=== PATIENT | female | born 1940 | race Caucasian/White ===

== ENCOUNTER 2016-06-13 05:55 | Inpatient (IN) ==
--- NOTE | 2016-06-12 16:55 | Anesthesia Evaluation PreOp ---
Date of Encounter: 06/13/16 Time of Encounter: 16:52 - Past History Planned Operation: Bilateral Total Knee Arthroplasty Cardiac History: Hyperlipidemia Pulmonary History: Denies Any Significant HX PRIMARY TEACHING ASSISTANT History: Denies Any Significant HX Other Medical History: Thyroid, Other (depression) Anesthesia History: No Prior Anesthetic Complications, Past Anesthesia Alcohol Use: occasionally Drug use: none Medications and Allergies Ondansetron ODT [Zofran ODT] 4 mg SL Q6HR #10 tab.evaristo 04/28/16 [Rx] Aspirin Enteric Coated [Aspirin EC] 325 mg PO DAILY #21 tablet.dr 06/12/16 [Rx] Enoxaparin [Lovenox] 30 mg SQ Q12HR #20 syr 06/12/16 [Rx] OxyCODONE Immed Rel [Roxicodone 5 MG] 5 - 10 mg PO Q6HR PRN #40 tablet 06/12/16 [Rx] Allergies No Known Allergies Allergy (Verified 04/28/16 15:24) - Meds/Allergy Pre-op Review Medications Reviewed: Yes Allergies Reviewed: Yes Beta Blockers on Current Med List: No Anesthesia Results - Labs Laboratory Tests 05/30/16 05/30/16 05/30/16 14:45 14:45 14:45 WBC 9.9 Hgb 11.2 L Hct 34.1 L Plt Count 345 PT 11.9 INR 1.1 APTT 29.3 Sodium 137 Potassium 4.3 BUN 15 Creatinine 0.84 - Imaging EKG: report reviewed (04/28/2016 SR with SA, NSST abnormality) Additional studies: 06/04/2010 Stress CONCLUSIONS: ==> No chest pain. ==> Adequate exercise stress test based on maximum HR achieved. ==> Negative ECG for ischemia. ==> The exercise ECG was negative for ischemia. ==> The patient demonstrated fatique during the exam. ==> The patient experienced shortness of breath, fatigue during the exam. ==> The patient's exercise tolerance was average with 5.30 mins ==> The left ventricle does not appear dilated ==> Segmental ventricular function reveals no wall motion abnormalities ==> The gated ejection fraction was calculated at 51% ==> The nuclear exam reveals no evidence of stress-induced ischemia. ==> The nuclear exam reveals evidence of mild anterior fixed decreased uptake suggestive of breast attenuation artifact.. ==> Clinical correlation suggested., Anesthesia Exam O2 Sat Height 1.63 m Height 1.63 m Weight 63.503 kg Weight 63.503 kg O2 Sat by Pulse Oximetry 94 Vital Signs Temp Pulse Resp BP Pulse Ox 97.8 F 71 18 158/74 94 L 06/13/16 06:14 06/13/16 06:14 06/13/16 06:14 06/13/16 06:14 06/13/16 06:14 Height: 5'4'' Weight: 140 lbs NPO (# of Hours): 8 Pain Scale: 3 (left knee) Pain Scale Used: Numeric (1 - 10) - HEENT Pupil (Motor): EOMI Mallampati: II Teeth: Normal Oral Opening: Greater than 3 - PRIMARY TEACHING ASSISTANT LOC: Oriented PRIMARY TEACHING ASSISTANT Motor: Normal RUE, Normal RLE, Normal LLE, Normal Face, Deficit LUE PRIMARY TEACHING ASSISTANT Sensory: Normal: RUE, LUE, RLE, LLE, Face - Cardiac Rhythm: Regular Murmur: None - Pulmonary Breath Sounds: bilateral Clear Respiratory Effort: Symmetrical Anesthesia Assess/Plan ASA Score: 2 Modified Leelee Scale for Level of Consciousness: Cooperative, oriented, and tranquil Anesthetic Plan: General, Regional Monitoring Plan: Standard Monitors Recovery Plan: PACU
--- NOTE | 2016-06-12 20:37 | Discharge Summary ---
<Lisa Moreno - Last Filed: 06/12/16 20:46> Date of Encounter: 06/12/16 - Discharge Diagnosis (1) Arthritis of knee Priority: Primary Status: Acute (2) Status post bilateral knee replacements Priority: Primary Status: Acute (3) Thyroid disease Priority: Secondary Status: Chronic - Discharge Medications Home Medications: Aspirin Enteric Coated [Aspirin EC] 325 mg PO DAILY #21 tablet. 06/12/16 [Rx] Enoxaparin [Lovenox] 30 mg SQ Q12HR #20 syr 06/12/16 [Rx] OxyCODONE Immed Rel [Roxicodone 5 MG] 5 - 10 mg PO Q6HR PRN #40 tablet 06/12/16 [Rx] Acetaminophen [Tylenol Arthritis] 650 mg PO Q8H PRN 06/13/16 [History] Aspirin 81 mg PO DAILY 06/13/16 [History] Biotin 5 mg PO DAILY 06/13/16 [History] Budesonide [Rhinocort Allergy] 1 spr NS DAILY 06/13/16 [History] Cetirizine HCl [Zyrtec] 10 mg PO HS 06/13/16 [History] Citalopram [CeleXA] 20 mg PO DAILY 06/13/16 [History] Ibuprofen [Motrin] 200 mg PO Q4HR PRN 06/13/16 [History] Levothyroxine [Synthroid] 75 mcg PO 0630 06/13/16 [History] Multivits,Ca,Min/Iron/FA/Lycop [Centrum Men's Tablet] 1 each PO DAILY 06/13/16 [ History] Simvastatin [Zocor] 20 mg PO HS 06/13/16 [History] Allergies/Adverse Reactions: Allergies No Known Allergies Allergy (Verified 06/13/16 07:18) Primary care physician: Jon Collier CNP - Patient Status Disposition: Transfer Inpatient Rehab Fac Condition: Good - Discharge Instructions Follow Up With: Rufus Díaz MD [Partnered Physician] - 07/12/16 10:05 am Lisa Moreno PAC [Physician Gallery Director] - 06/24/16 9:45 am Jon Collier CNP [Primary Care Provider] - 06/17/16 10:00 am - Hospital Course Hospital course: Ms. Whitaker is a 75 year old female - Time Spent with Patient Total time spent providing and/or coordinating discharge services: <ArjunRufus - Last Filed: 06/16/16 08:13> Date of Encounter: 06/16/16 Time of Encounter: 08:12 - Discharge Diagnosis (1) Degenerative arthritis of knee, bilateral Priority: Primary (Hyponatremia) Status: Acute Qualifiers: Qualified Code(s): M17.0 - Bilateral primary osteoarthritis of knee (2) Thyroid disease Priority: Secondary Status: Chronic (3) Acute blood loss anemia Status: Acute (4) Hypotension Status: Acute Qualifiers: Qualified Code(s): I95.89 - Other hypotension (5) Hypothyroidism Status: Acute Qualifiers: Qualified Code(s): E03.9 - Hypothyroidism, unspecified Primary care physician: Jon Collier CNP - Patient Status Functional capacity at discharge: uses cane/walker Overall status at discharge: patient is progressing back to baseline - Hospital Course Hospital course: Ms. Whitaker is a 75 year old female Patient's postoperative course has been complicated by acute blood loss anemia with a concern for stroke. Workup was negative for stroke with a negative CAT scan. Patient has developed hyponatremia patient received packed red Blood cells to bring her hemoglobin back to 9.5. She received antibiotics and physical therapy discharge stable condition - Time Spent with Patient Total time spent providing and/or coordinating discharge services:
[2016-06-13] MEDS ORDERED: Lidocaine 1% 20 ML MDV ID ONE (06:34)
[2016-06-13] MEDS ORDERED: CeFAZolin Pre 2,000 MG/100 ML 2,000 MG/100 ML BAG IVPB ONE (06:34)
--- NOTE | 2016-06-13 06:36 | History & Physical Report ---
Date of Encounter: 06/13/16 Time of Encounter: 06:35 24 Hour HP Update - Instructions Instructions: If the History and Physical is less than 30 days old and was completed prior to A.M. admission and or procedure and has NOT been updated on calendar day of procedure please complete this update prior to performing procedure. - Update Patient reports changes in Medical Condition: No Changes in assessment/condition: No Changes in Medication: No Preop tests/diagnostics Reviewed: Yes Surgery Remains Indicated: Yes Consent for Planned Operative Procedure(s) Verified: Yes - Pre-Operative Checklist Preoperative Checklist Indicated: No Prophylactic Antibiotic Ordered: Yes Is VTE Prophylaxis Indicated?: Yes
[2016-06-13] MEDS ORDERED: Ringers Solution, Lactated 1,000 ML IVC SCH (06:45)
[2016-06-13] MEDS ORDERED: Lidocaine -MPF 4% 5 ML AMPUL ONE (07:15)
[2016-06-13] MEDS ORDERED: Lidocaine -MPF 2% 2 ML VIAL ONE (07:15)
[2016-06-13] MEDS ORDERED: *HR* Succinylcholine 200 MG/10 ML VIAL IVP ONE (07:15)
[2016-06-13] MEDS ORDERED: Ondansetron 4 MG/2 ML VIAL ONE (07:15)
[2016-06-13] MEDS ORDERED: Dexamethasone 4 MG/ML VIAL ONE (07:15)
[2016-06-13] MEDS ORDERED: *HR* Phenylephrine 10 MG/ML VIAL ONE (07:15)
[2016-06-13] MEDS ORDERED: *HR* Midazolam HCl 2 MG/2 ML VIAL ONE (07:16)
[2016-06-13] MEDS ORDERED: *HR* Propofol 200 MG/20 ML VIAL IVP ONE (07:16)
[2016-06-13] MEDS ORDERED: *HR* FentaNYL (PF) 100 MCG/2 ML VIAL ONE ×2 (07:16→07:21)
[2016-06-13] MEDS ORDERED: Vancomycin 1,000 MG VIAL ONE (07:23)
[2016-06-13] MEDS ORDERED: *HR* Morphine Sulfate/PF 10 MG/10 ML AMPUL ONE (07:24)
[2016-06-13] MEDS ORDERED: EPHEDrine 50 MG/ML VIAL ONE (08:08)
--- NOTE | 2016-06-13 08:33 | Anesthesia Procedures ---
Date of Encounter: 06/13/16 Time of Encounter: 07:45 Procedures: Anesthesia - Epidural/Spinal Patient ID/Chart reviewed: Yes Patient examined: Yes Consent Obtained: Yes (SPINAL DONE ) Supplemental Oxygen: Nasal Cannula Supplemental Oxygen Rate (L/min): 2 Sedation: Versed (mg): 1 Sedation: Fentanyl (mcg): 50 Site Prep: Aseptic Technique, Sterile prep and drape, Povidone-Iodine 1% Patient position: upright (SITTING) Local Anesthetic: Lidocaine 1% Amount of Local Anesthetic used: 1.6 (BUPIVICAINE 0.75%) Catheter Secured in Place: Other (STERILE 4x4 PLACED OVER SITE ) Interspace Used: L3-L4 Blood: No CSF: Yes Paresthesia: No Spinal Needle Gauge: Other (20 G PENCAN -SPINAL PROCEDURE) Procedure: SEE NOTE ON ANESTHESIA RECORD Vitals + FHT's: SEE VITALS ON ANESTHESIA RECORD PATIENT STABLE THROUGHOUT PROCEDURE
[2016-06-13] MEDS ORDERED: *HR* Promethazine 25 MG/ML VIAL IVP PRN (08:36)
--- NOTE | 2016-06-13 09:09 | Orthopedic Operative Note ---
Date of procedure: 06/13/16 Pre-op diagnosis: Bilateral knee arthritis Post-op diagnosis: same Procedure: Procedure: Bilateral Total knee replacement Estimated blood loss: 500 cc Hardware: Arthrex Femur: Bilateral 3 Tibia: Bilateral 3 PS insert: 14 left 12 right Patella: 34 bilateral Exam Under anesthesia: Full motion and no instability Procedural Notes: Bilateral grade 4 arthritic changes medial compartment grade 3 arthritic changes patellofemoral joints Operative procedure: The patient was brought to the operating room and placed on the operating room table. After general anesthesia was administered the operative knees were examined. Findings were noted in the exam under anesthesia. Both operative extremity was prepped and draped in sterile surgical fashion. The patient received IV antibiotics prior to skin incision. Surgery began with the left knee followed by the right knee. The following is the dictation for both knees. Any variation for either knee will be called out at the appropriate step. A standard midline incision was made centered over the patella. The incision was made through the skin and subcutaneous tissue. A medial parapatellar tendon approach was performed. Care was taken to preserve tissue along the medial aspect of the patella. And to protect the patella tendon. The deep MCL was released off the medial tibia. The infra patella fat pad was excised. Knee was brought into flexion. Patient noted to have grade 4 arthritic changes in both knees of the medial compartments and grade 3 arthritic changes of the patellofemoral joints both knees. The entry hole was made for the intramedullary femoral guide. The guide was seated in 6 degrees of valgus. Anterior cut was made followed by the distal cut. The ACL the PCL the medial and the lateral menisci were excised. The tibia was subluxed forward. The entry hole was made for the intramedullary tibial guide. Guide was seated to resect 2 mm off the more abnormal side. The knee was brought into flexion the distal femur was sized to a 3. The femoral guide was seated, the anterior cut was made followed by the posterior condylar cut, followed by the chamfer cuts. The finishing guide was seated the box cut was made and the lug holes were drilled. The tibia was sized to a 3, the tibial tray was seated and prepared with the large drill followed by the fin cutter. Trial reduction revealed full extension no varus valgus instability with the appropriate 12 in the right knee 14 in the left knee PS Odalis. The patella was everted and cut was made at the level of the insertion of the quadriceps and patella tendon. The patella was sized to 34's bilaterally the guide was seated and the lug holes are drilled. Trial reduction revealed excellent patella tracking. All trial components were removed all bony surfaces were irrigated. The tibia was cemented first followed by the femur. The 14 in the left knee and the 12 in the right knee PS Odalis was seated and the knee was brought into full extension. The patella was cemented and held in place with the patellar holding clamp. After the cement had hardened, the knee sat for 2 minutes with a Betadine saline solution. The knee was then irrigated out with 2 L of pulse irrigation. The extensor mechanism was closed with #2 FiberWire suture and #2 PDS suture. The subcutaneous tissue was then irrigated and closed deep with #1 PDS suture superficially with 0 PDS suture and skin was closed with skin olive. The patient was then placed in a sterile dressing and a postoperative brace extubated and transferred to recovery room in stable condition. Anesthesia: MICHAEL Surgeon: Rufus Díaz Deputy Editor In Chief: Lisa Moreno Condition: stable Disposition: PACU
[2016-06-13 10:00] LABS: Hemoglobin 9.8 g/dL (11.5-15.4)
--- NOTE | 2016-06-13 10:25 | Anesthesia Evaluation Post Op ---
Date of Encounter: 06/13/16 Time of Encounter: 10:23 - Vital Signs Vital Signs: Vital Signs/O2 Sat, Most Current Temp Pulse Resp BP Pulse Ox 97.3 F L 101 16 118/82 98 06/13/16 10:09 06/13/16 10:09 06/13/16 10:09 06/13/16 10:06/13/16 10:09 - Lungs Lungs: Clear Ascult./Percussion - Airway Airway: Non-obstructed - Cardiovascular Regular Rate - Mental Status Mental Status: Alert & Oriented, Answers Appropriately - Pain Pain Scale: 0 Pain Scale used: Numeric (1 - 10) - Nausea Vomiting Nausea Vomiting: Not Present - Hydration Hydration: Ice chips, Has not voided - Discharge PostOp Status: Transfer Patient to floor
[2016-06-13] MEDS ORDERED: MOM Conc 10 ML UD.LIQ PO PRN (10:45)
[2016-06-13] MEDS ORDERED: Naloxone 0.4 MG/ML INJ IVP PRN (10:45)
[2016-06-13] MEDS ORDERED: Acetaminophen 325 MG TABLET PO PRN (10:45)
[2016-06-13] MEDS ORDERED: [UNRECOGNIZED DRUG - REMARK] NS SCH (10:45)
[2016-06-13] MEDS ORDERED: (Biotin [Biotin] 5 MG) PO SCH (10:45)
[2016-06-13] MEDS ORDERED: Temazepam 15 MG CAPSULE PO PRN (10:45)
[2016-06-13] MEDS ORDERED: Sennosides 8.6 MG TABLET PO PRN (10:45)
[2016-06-13] MEDS ORDERED: Ibuprofen 200 MG TABLET PO PRN (10:45)
[2016-06-13] MEDS: ceFAZolin 2,000 MG in D5% in Water 100 ML IVPB SCH ×2 (11:39→17:19)
[2016-06-13] MEDS: Multivit/Ca/Min/Fe/FA 1 TAB TABLET PO SCH (11:39)
[2016-06-13] MEDS: Aspirin 81 MG TAB.CHEW PO SCH (11:39)
[2016-06-13] MEDS: Ringers Solution, Lactated 1,000 ML IVC SCH (11:40)
[2016-06-13] MEDS: *HR* OxyCODONE Immed Rel 5 MG TABLET PO PRN (13:53)
[2016-06-13] MEDS: Ondansetron 4 MG/2 ML VIAL IVP PRN ×2 (15:20→21:25)
[2016-06-13] MEDS: *HR* HYDROmorphone (PF) 1 MG/ML SYRINGE IVP PRN ×2 (16:03→21:39)
[2016-06-13] MEDS: *HR* Enoxaparin 30 MG/0.3 ML SYRINGE SQ SCH (17:19)
[2016-06-13] MEDS ORDERED: *HR* Enoxaparin 30 MG/0.3 ML SYRINGE SQ SCH (19:00)
[2016-06-13] MEDS: Loratadine 10 MG TABLET PO SCH (21:38)
[2016-06-14] MEDS: Ringers Solution, Lactated 1,000 ML IVC SCH (00:03)
[2016-06-14] MEDS: *HR* OxyCODONE Immed Rel 5 MG TABLET PO PRN ×5 (00:13→21:53)
[2016-06-14] MEDS: *HR* HYDROmorphone (PF) 1 MG/ML SYRINGE IVP PRN (04:10)
[2016-06-14] MEDS: Ondansetron 4 MG/2 ML VIAL IVP PRN ×2 (04:18→17:39)
--- NOTE | 2016-06-14 06:15 | Orthopedics Progress Note ---
Date of Encounter: 06/14/16 Time of Encounter: 06:14 - Assessment and Plan (1) Degenerative arthritis of knee, bilateral Current Visit: Yes Status: Acute Qualifiers: Osteoarthritis type: primary Qualified Code(s): M17.0 - Bilateral primary osteoarthritis of knee (2) Thyroid disease Current Visit: Yes Status: Chronic Subjective Interval history: Patient was seen this morning doing well without complaints. Afebrile vital signs stable. Operative extremity: Neurovascularly intact Dressing clean dry and intact Calves nontender Assessment and plan: Continue with postoperative care hct 30 Objective Vital signs: Vital Signs Temp Pulse Resp BP Pulse Ox 06/14/16 05:17 98.7 F 90 15 162/79 98 06/14/16 00:55 97.6 F 93 16 151/75 95 06/14/16 00:10 89 131/71 06/13/16 19:57 98.2 F 85 17 134/70 96 06/13/16 15:58 97.5 F L 73 16 139/72 98 06/13/16 14:18 97.2 F L 74 16 149/87 99 06/13/16 13:27 97.5 F L 67 16 153/89 99 06/13/16 11:45 96.1 F L 81 17 112/66 96 06/13/16 11:15 97.1 F L 82 16 120/69 97 06/13/16 10:51 87 22 122/73 95 06/13/16 10:50 86 18 126/75 94 L 06/13/16 10:45 97.5 F L 84 15 126/75 95 06/13/16 10:29 97.8 F 96 16 127/76 96 06/13/16 10:19 97.3 F L 94 16 125/78 95 06/13/16 10:09 97.3 F L 101 16 118/82 98 06/13/16 09:59 97.2 F L 108 16 120/75 97 06/13/16 09:49 109 14 119/78 98 06/13/16 09:44 106 14 131/71 99 06/13/16 09:39 96.5 F L 108 14 119/73 99 06/13/16 07:41 57 17 173/81 100 06/13/16 07:26 58 16 174/77 100 Intake and Output 06/13/16 06/13/16 06/14/16 15:59 23:59 07:59 Intake Total 200 / 200 1000 / 1000 Output Total 800 / 800 500 / 500 Balance -600 / -600 -500 / -500 1000 / 1000 Intake: IV Fluids 200 / 200 1000 / 1000 Lactated Ringers 1,000 ML 1000 / 1000 @ 75 mls/hr IVC .[id number] [facility] Rx#:[id number] Ancef 2,000 MG In 100 / 100 Dextrose 5% 100 ML @ 200 mls/hr IVPB Q8HR [facility] Rx#: [id number] Ancef Premix 2,000 MG/100 100 / 100 ML 2,000 mg In 100 ml @ 200 mls/hr IVPB PREOP ONE Rx#:[id number] Output: Urine 300 / 300 500 / 500 Estimated Blood Loss 500 / 500 Other: # Voids 1 - Labs CBC & BMP: 06/13/16 09:53 Labs: Abnormal lab results Hgb 9.8 g/dL (11.5-15.4) L 06/13/16 09:53 Hct 30.0 % (35.3-44.9) L 06/13/16 09:53 - VTE Documentation of Mechanical Device: Venous foot pump, device Consult Discharge Plan - Plan Referrals: Jon Collier CNP [Primary Care Provider] - 06/17/16 10:00 am
[2016-06-14] MEDS: *HR* Enoxaparin 30 MG/0.3 ML SYRINGE SQ SCH ×2 (06:27→18:56)
[2016-06-14 07:02] LABS: Hematocrit 21.5 % (35.3-44.9); Hemoglobin 7.4 g/dL (11.5-15.4)
[2016-06-14 07:18] LABS: BUN/Creatinine Ratio 17 (6-26); Blood Urea Nitrogen 12 mg/dL (7-20); Calcium 8.3 mg/dL (8.6-10.8); Carbon Dioxide 22 mEq/L (19-29); Chloride 95 mEq/L (98-109); Glucose 118 mg/dL (70-99); Osmolality,Calculated 261 (280-300); Potassium 4.8 mEq/L (3.5-4.5); Sodium 125 mEq/L (136-145); eGFR For African Americans > 60 (> 60); eGFR For Non-African Americans > 60 (> 60)
[2016-06-14] MEDS ORDERED: Furosemide 20 MG/2 ML VIAL IVP ONE ×2 (09:04→19:58)
[2016-06-14] MEDS ORDERED: 0.9 % Sodium Chloride 1,000 ML ONE (09:07)
[2016-06-14] MEDS ORDERED: 0.9 % Sodium Chloride 1,000 ML IVC ONE (09:50)
--- NOTE | 2016-06-14 09:51 | Internal Medicine Consult Note ---
Date of Encounter: 06/14/16 Time of Encounter: 08:45 - Assessment and Plan (1) Status post bilateral knee replacements Current Visit: Yes Status: Acute Assessment and plan: Patient underwent bilateral total knee replacement yesterday 06/13/16. Dr Díaz is primary (2) Acute encephalopathy Current Visit: Yes Status: Acute Assessment and plan: This morning, patient was seen doing well at 7 AM, she had her session of physical therapy without any issues. She stood up and was alert and oriented 3. At 8:40 AM, rapid response was called because of changes in her mental status, she was not easy to arouse. she was hypotensive Bp 87/51, hypoxemic SaO2 76% and difficult to arouse. Her arms were contracted and on a flexural position over her chest. bilateral knee immobilizers. She received Iv fluid bolus, 0.4 mg of narcan and was placed in non-rebreather mask. Her repeat vital signs 15 min later were BP 125/78 and SaO2 95%. She slowly was opening her eyes and answering yes/no questions. Given slow recovery of mental status with signs of persistent hypoxemia, she had a stat CT head and CTA of chest. Thereafter, her vitals signs were normal and her neurological examination was unremarkable. She tolerated well 2L NC and her rest of vital signs were adequate. labs from the morning Hgb 7.4, Na 125 and K 4.8, Cl 95. could be multifactorial secondary to acute hyponatremia, acute blood loss anemia and medications (dilaudid at 4am and oxycodone at midnight). Ct head was negative for any acute process but showed mild chronic ischemic changes. CTA chest showed no PE. resolved. patient is back to baseline. treating anemia and hyponatremia. (3) Hypotension Current Visit: Yes Status: Acute Assessment and plan: could be secondary to hypovolemia from blood loss and poor oral intake. IV fluids. transfuse 2 PRBC. plan as above. Qualifiers: Hypotension type: other hypotension type Qualified Code(s): I95.89 - Other hypotension (4) Hypoxemia Current Visit: Yes Status: Acute Assessment and plan: resolved. continue 2L NC. could be secondary to hypovolemia and hypotension. (5) Acute blood loss anemia Current Visit: Yes Status: Acute Assessment and plan: Transfuse 2 PRBC. anemia work up as outpatient given hgb of 11.2 in Mar 2016. (6) Acute hyponatremia Current Visit: Yes Status: Acute Assessment and plan: secondary to acute blood loss, poor oral intake. IV fluids. close monitor. repeat BMP. (7) Hypothyroidism Current Visit: Yes Status: Acute Assessment and plan: continue home dose of levothyroxine. check tsh Qualifiers: Hypothyroidism type: unspecified Qualified Code(s): E03.9 - Hypothyroidism , unspecified Internal Medicine - CN: HPI - Data of Consult Patient: new to practice Consult date: 06/14/16 Requesting Physician: Rufus Díaz MD - Consult Narrative Reason for consult: changes in mental status History of present illness: Ms. Whitaker is a 75 year old female with past medical history of hypothyroidism, hyperlipidemia and depression who is under the care of our orthopedic service, Dr. Díaz. Patient underwent elective bilateral total knee replacement under spinal anesthesia yesterday morning. Estimated total blood loss 500 mL. This morning, patient was seen doing well at 7 AM, she had her session of physical therapy without any issues. She stood up and was alert and oriented 3. At 8: 40 AM, rapid response was called because of changes in her mental status, she was not easy to arouse. she was hypotensive Bp 87/51, hypoxemic SaO2 76% and difficult to arouse. Her arms were contracted and on a flexural position over her chest. bilateral knee immobilizers. She received Iv fluid bolus, 0.4 mg of narcan and was placed in non-rebreather mask. Her repeat vital signs 15 min later were BP 125/78 and SaO2 95%. She slowly was opening her eyes and answering yes/no questions. She had a stat CT head and CTA of chest. Thereafter , her vitals signs were normal and her neurological examination was unremarkable. She is tolerating 2L NC well and her rest of vital signs are adequate. patient denies any chest pain, shortness of breath, abdominal pain, urinary complaints, bleeding, syncope, lightheadedness, focal deficits, palpitations. labs from the morning Hgb 7.4, Na 125 and K 4.8, Cl 95.Upon reviewing her prior labs, her hemoglobin was 11.2 in March. She denies any external bleeding or history of anemia. she had a colonoscopy recently but no records are foundi n our computer. Past Med Surg Social Fam HX - Past Medical History Medical history: hyperlipidemia, thyroid disease Psychiatric history: depression - Social History Smoking Status: Never smoker Smokeless Tobacco Status: No Alcohol use: occasionally Drug use: none - Family History Sister Living Status: Still Living Hx Family Endocrine Disorder: Yes (DM) ROS unobtainable: due to mental status Internal Medicine - CN: Meds Aspirin Enteric Coated [Aspirin EC] 325 mg PO DAILY #21 tablet. 06/12/16 [Rx] Enoxaparin [Lovenox] 30 mg SQ Q12HR #20 syr 06/12/16 [Rx] OxyCODONE Immed Rel [Roxicodone 5 MG] 5 - 10 mg PO Q6HR PRN #40 tablet 06/12/16 [Rx] Acetaminophen [Tylenol Arthritis] 650 mg PO Q8H PRN 06/13/16 [History] Aspirin 81 mg PO DAILY 06/13/16 [History] Biotin 5 mg PO DAILY 06/13/16 [History] Budesonide [Rhinocort Allergy] 1 spr NS DAILY 06/13/16 [History] Cetirizine HCl [Zyrtec] 10 mg PO HS 06/13/16 [History] Citalopram [CeleXA] 20 mg PO DAILY 06/13/16 [History] Ibuprofen [Motrin] 200 mg PO Q4HR PRN 06/13/16 [History] Levothyroxine [Synthroid] 75 mcg PO 0630 06/13/16 [History] Multivits,Ca,Min/Iron/FA/Lycop [Centrum Men's Tablet] 1 each PO DAILY 06/13/16 [ History] Simvastatin [Zocor] 20 mg PO HS 06/13/16 [History] Allergies No Known Allergies Allergy (Verified 06/13/16 07:18) Internal Medicine - CN: Exam - Constitutional Vitals: Temp Pulse Resp BP Pulse Ox 98.2 F 99 16 122/70 99 06/14/16 07:01 06/14/16 09:27 06/14/16 09:27 06/14/16 09:27 06/14/16 09:27 General appearance IM: Present: cooperative, A&O X 3, pleasant, no acute distress, answers questions appropriately - Head Head exam: Present: atraumatic Internal Medicine - CN: Reslt - Labs CBC & Chem 7: 06/14/16 06:15 06/14/16 06:15 Labs: Short CBC 06/13/16 06/14/16 Range/Units 09:53 06:15 Hgb 9.8 L 7.4 L D (11.5-15.4) g/dL Hct 30.0 L 21.5 L (35.3-44.9) % BMP 06/14/16 06:15 Sodium 125 L Potassium 4.8 H Chloride 95 L Carbon Dioxide 22 BUN 12 Creatinine 0.70 Glucose 118 H Calcium 8.3 L - Impressions Impressions Knee X-Ray 06/13/16 00:01 IMPRESSION: Postsurgical changes from bilateral total knee arthroplasty. No radiographic evidence of acute complication. D/ / 06/13/2016 10:11:04 Destinee Martinez MD / becca Interpreting Provider: Destinee Martinez MD Chest CTA 06/14/16 00:00 IMPRESSION: No evidence of pulmonary embolism or acute pulmonary abnormality. D/ / Erich Martin MD / Erich Martin MD Interpreting Provider: Erich Martin MD Head CT 06/14/16 08:48 IMPRESSION: No acute intracranial abnormality. Faint low-density periventricular white matter changes are noted compatible with mild chronic small vessel ischemic disease. D/ / Deandre Herrera MD / Deandre Herrera MD Interpreting Provider: Deandre Herrera MD Consult Discharge Plan - Plan Referrals: Jon Collier, LABORATORY TECH [Primary Care Provider] - 06/17/16 10:00 am
[2016-06-14 10:03] LABS: Basophils % 0.1 %; Hematocrit 19.9 % (35.3-44.9); Hemoglobin 6.8 g/dL (11.5-15.4); Immature Granulocytes % 0.3 % (0-4); Lymphocytes # 1.4 K/mcL (0.6-4.6); Mean Corpuscular HGB Conc 34.2 g/dL (31.6-35.5); Mean Corpuscular Hemoglobin 31.5 pg (28.0-33.3); Mean Corpuscular Volume 92.1 fL (83.0-100.0); Mean Platelet Volume 9.3 fL (9.4-12.4); Monocytes # 1.1 K/mcL (0.0-1.3); Monocytes % 9.1 %; Platelet Count 201 K/mcL (140-400); Red Blood Count 2.16 M/mcL (3.82-4.97); Red Cell Distribution Width 12.9 % (11.5-14.5); Segmented Neutrophils % 79.5 %
[2016-06-14 10:22] LABS: Alanine Aminotransferase 8 Units/L (0-55); Albumin 2.7 g/dL (3.5-5.0); Alkaline Phosphatase 54 Units/L (38-126); Aspartate Amino Transferase 19 Units/L (5-34); BUN/Creatinine Ratio 16 (6-26); Bilirubin,Direct 0.3 mg/dL (0.0-0.5); Bilirubin,Indirect 0.4 mg/dL (0.0-1.2); Bilirubin,Total 0.7 mg/dL (0.2-1.2); Blood Urea Nitrogen 12 mg/dL (7-20); Calcium 8.1 mg/dL (8.6-10.8); Carbon Dioxide 19 mEq/L (19-29); Chloride 95 mEq/L (98-109); Globulin 2.8 g/dL (2.4-3.5); Glucose 118 mg/dL (70-99); Magnesium 1.3 mg/dL (1.6-2.6); Osmolality,Calculated 257 (280-300); Potassium 4.8 mEq/L (3.5-4.5); Sodium 123 mEq/L (136-145); Total Protein 5.5 g/dL (6.0-8.3); eGFR For African Americans > 60 (> 60); eGFR For Non-African Americans > 60 (> 60)
[2016-06-14] MEDS ORDERED: Magnesium Sulfate 2 GM in D5% in Water 100 ML IVPB STA (10:29)
[2016-06-14] MEDS: 0.9 % Sodium Chloride 1,000 ML IVC SCH ×2 (11:07→23:22)
[2016-06-14] MEDS: Aspirin 81 MG TAB.CHEW PO SCH (11:07)
[2016-06-14] MEDS: Multivit/Ca/Min/Fe/FA 1 TAB TABLET PO SCH (11:07)
[2016-06-14] MEDS ORDERED: 0.9 % Sodium Chloride 250 ML ONE (11:34)
--- NOTE | 2016-06-14 12:56 | Electrocardiograph Report ---
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
[2016-06-14] MEDS ORDERED: Furosemide 40 MG/4 ML VIAL ONE (16:31)
[2016-06-14] MEDS: Fluticasone Propionate Nasal 50 MCG/SPRAY BOTTLE NS SCH (16:36)
[2016-06-14] MEDS: Loratadine 10 MG TABLET PO SCH (21:08)
[2016-06-15] MEDS: *HR* OxyCODONE Immed Rel 5 MG TABLET PO PRN ×5 (03:50→22:50)
[2016-06-15 05:17] LABS: Ionized Calcium 1.06 mmol/L (1.15-1.35)
[2016-06-15 05:21] LABS: Basophils % 0.1 %; Hematocrit 27.8 % (35.3-44.9); Immature Granulocytes % 0.6 % (0-4); Lymphocytes # 1.3 K/mcL (0.6-4.6); Mean Corpuscular HGB Conc 34.9 g/dL (31.6-35.5); Mean Corpuscular Hemoglobin 30.8 pg (28.0-33.3); Mean Corpuscular Volume 88.3 fL (83.0-100.0); Mean Platelet Volume 9.8 fL (9.4-12.4); Monocytes # 1.2 K/mcL (0.0-1.3); Monocytes % 9.1 %; Neutrophils # 10.1 K/mcL (1.6-8.9); Platelet Count 190 K/mcL (140-400); Red Blood Count 3.15 M/mcL (3.82-4.97); Red Cell Distribution Width 14.5 % (11.5-14.5); Segmented Neutrophils % 80.2 %
[2016-06-15 05:26] LABS: Hemoglobin 9.7 g/dL (11.5-15.4)
[2016-06-15 05:37] LABS: BUN/Creatinine Ratio 15 (6-26); Blood Urea Nitrogen 12 mg/dL (7-20); Calcium 8.1 mg/dL (8.6-10.8); Carbon Dioxide 21 mEq/L (19-29); Chloride 97 mEq/L (98-109); Glucose 126 mg/dL (70-99); Magnesium 1.7 mg/dL (1.6-2.6); Osmolality,Calculated 263 (280-300); Phosphorous 2.5 mg/dL (2.3-4.7); Potassium 3.8 mEq/L (3.5-4.5); Sodium 126 mEq/L (136-145); Uric Acid 3.8 mg/dL (2.6-6.0); eGFR For African Americans > 60 (> 60); eGFR For Non-African Americans > 60 (> 60)
[2016-06-15] MEDS ORDERED: Furosemide 20 MG/2 ML VIAL IVP ONE (06:18)
--- NOTE | 2016-06-15 06:29 | Orthopedics Progress Note ---
Date of Encounter: 06/15/16 Time of Encounter: 06:28 - Assessment and Plan (1) Degenerative arthritis of knee, bilateral Current Visit: Yes Status: Acute Qualifiers: Qualified Code(s): M17.0 - Bilateral primary osteoarthritis of knee (2) Thyroid disease Current Visit: Yes Status: Chronic (3) Acute blood loss anemia Current Visit: Yes Status: Acute (4) Hypotension Current Visit: Yes Status: Acute Qualifiers: Qualified Code(s): I95.89 - Other hypotension (5) Hypothyroidism Current Visit: Yes Status: Acute Qualifiers: Qualified Code(s): E03.9 - Hypothyroidism, unspecified Subjective Interval history: Patient with an acute episode of hypovolemia secondary to acute blood loss anemia. Hemoglobin was around 6.7. Patient doing much better this morning hemoglobin is 9.7. Patient is awake and alert and oriented 3. Bilateral lower extremities neurovascular intact dressings clean dry and intact calves nontender. We will transfuse 1 unit continue to monitor labwork. Objective Vital signs: Vital Signs Temp Pulse Resp BP Pulse Ox 06/15/16 04:00 98.3 F 92 16 127/75 96 06/15/16 00:00 99.0 F 87 17 125/72 99 06/14/16 19:56 99.2 F 87 16 138/73 98 06/14/16 17:51 98.9 F 92 16 150/58 100 06/14/16 17:36 100.1 F H 68 14 141/70 06/14/16 15:29 98.5 F 83 18 161/81 99 06/14/16 15:08 97.9 F 89 16 135/74 100 06/14/16 12:30 98.9 F 87 16 130/75 100 06/14/16 12:15 98.6 F 91 16 131/75 98 06/14/16 10:54 98.2 F 85 16 123/71 100 06/14/16 09:27 99 16 122/70 99 06/14/16 07:01 98.2 F 89 16 145/77 100 Intake and Output 06/14/16 06/14/16 06/15/16 15:59 23:59 07:59 Intake Total 300 / 300 1500 / 1500 100 / 100 Output Total 100 / 100 250 / 250 Balance 200 / 200 1500 / 1500 -150 / -150 Intake: IV Fluids 1000 / 1000 0.9 % Sodium Chloride 1, 1000 / 1000 000 ML @ 75 mls/hr IVC . [id number] [facility] Rx#: [id number] Oral 200 / 200 100 / 100 Blood Product 300 / 300 300 / 300 Rbcs Leuko Poor As-1 300 / 300 Unit [id number] Rbcs Leuko Poor As-1 300 / 300 Unit [id number] Output: Urine 100 / 100 250 / 250 Other: Meal Dinner Percent of Meal Consumed 10% # Urine Diapers 1 1 1 - Labs CBC & BMP: 06/15/16 04:56 06/15/16 04:56 Labs: Abnormal lab results WBC 12.6 K/mcL (4.3-11.1) H 06/15/16 04:56 RBC 3.15 M/mcL (3.82-4.97) L 06/15/16 04:56 Hgb 9.7 g/dL (11.5-15.4) L D 06/15/16 04:56 Hct 27.8 % (35.3-44.9) L 06/15/16 04:56 Neutrophils # 10.1 K/mcL (1.6-8.9) H 06/15/16 04:56 Sodium 126 mEq/L (136-145) L 06/15/16 04:56 Chloride 97 mEq/L (98-109) L 06/15/16 04:56 Glucose 126 mg/dL (70-99) H 06/15/16 04:56 POC Glucose 135 (58-89) H 06/14/16 08:41 Serum Osmolality 266 mOsm/kg (280-300) L 06/14/16 16:22 Calculated Osmolality 263 (280-300) L 06/15/16 04:56 Calcium 8.1 mg/dL (8.6-10.8) L 06/15/16 04:56 Ionized Calcium 1.06 mmol/L (1.15-1.35) L 06/15/16 04:56 Serum Total Protein 5.5 g/dL (6.0-8.3) L 06/14/16 09:50 Albumin 2.7 g/dL (3.5-5.0) L 06/14/16 09:50 Albumin/Globulin Ratio 1.0 (1.1-2.2) L 06/14/16 09:50 Urine Osmolality 268 mOsm/kg (300-1090) L 06/14/16 21:30 - VTE Documentation of Mechanical Device: Venous foot pump, device Consult Discharge Plan - Plan Referrals: Rufus Díaz MD [Partnered Physician] - 07/12/16 10:05 am Lisa Moreno PAC [Physician County Bailiff] - 06/24/16 9:45 am Jon Collier, TOBIN [Primary Care Provider] - 06/17/16 10:00 am
[2016-06-15] MEDS: *HR* Enoxaparin 30 MG/0.3 ML SYRINGE SQ SCH ×2 (06:38→18:24)
[2016-06-15] MEDS: Aspirin 81 MG TAB.CHEW PO SCH (08:27)
[2016-06-15] MEDS: Multivit/Ca/Min/Fe/FA 1 TAB TABLET PO SCH (08:27)
[2016-06-15] MEDS: Ondansetron 4 MG/2 ML VIAL IVP PRN (08:30)
[2016-06-15] MEDS ORDERED: 0.9 % Sodium Chloride 250 ML ONE (10:54)
[2016-06-15] MEDS: 0.9 % Sodium Chloride 250 ML ONE ×2 (11:21→11:31)
[2016-06-15] MEDS: Fluticasone Propionate Nasal 50 MCG/SPRAY BOTTLE NS SCH (11:31)
--- NOTE | 2016-06-15 14:11 | Internal Med Progress Note ---
Date of Encounter: 06/15/16 Time of Encounter: 13:50 - Subjective Interval history: Drowsy due to pain medication but able to answer appropriately. Pain in both her knees, controlled with pain medications. No nausea, vomiting, chest pain or shortness of breath. Able to participate in physical therapy. Assessment and plan entered here due to technical issues- Bilateral knee osteoarthritis status post total knee replacement POD#2- local wound care and postoperative care per orthopedic surgery. PT/OT evaluation noted, recommend placement in inpatient rehabilitation. DVT prophylaxis with Lovenox. Pain control with when necessary oxycodone. Hypotension, acute encephalopathy and acute respiratory failure-resolved. Likely related to hypovolemia, acute blood loss anemia from surgery, acute hyponatremia. Improving hemoglobin and serum sodium today. Oxygen requirements at baseline. Blood pressure noted to be stable. Patient's mental status at baseline. Hypovolemic hyponatremia-received IV hydration with normal saline and serum sodium improved to 126. Currently on fluid restriction and sodium chloride tablets. Repeat serum sodium now and monitor closely. Acute blood loss anemia-likely due to orthopedic surgery. Received 2 units PRBC and hemoglobin noted to be 9.7 today. Receiving one more unit PRBC today. Continue to monitor. Hypothyroidism-continue home dose of levothyroxine. Depression-continue home medications. - Constitutional Vitals: Temp Pulse Resp BP Pulse Ox 97.3 F L 90 16 114/66 94 L 06/15/16 12:50 06/15/16 12:50 06/15/16 12:50 06/15/16 12:50 06/15/16 12:50 General appearance: Present: cooperative, A&O X 3, answers questions appropriately - Respiratory Respiratory exam: Present: CTAB. Absent: accessory muscle use, rales, rhonchi, wheezes - Cardiovascular Cardiovascular exam: Present: RRR, +S1, +S2. Absent: diastolic murmur, gallop, rubs, systolic murmur - Extremities Exam Extremities exam: Present: full ROM (Restricted bilateral knees. Bilateral knee ice packs), warm, radial pulses palpable and symetrical. Absent: calf tenderness, cyanotic, pedal edema Internal Medicine: Result - Labs CBC & Chem 7: 06/15/16 04:56 06/15/16 04:56 Labs: Short CBC 06/15/16 Range/Units 04:56 WBC 12.6 H (4.3-11.1) K/mcL Hgb 9.7 L D (11.5-15.4) g/dL Hct 27.8 L (35.3-44.9) % Plt Count 190 (140-400) K/mcL Neutrophils # 10.1 H (1.6-8.9) K/mcL BMP 06/15/16 04:56 Sodium 126 L Potassium 3.8 D Chloride 97 L Carbon Dioxide 21 BUN 12 Creatinine 0.78 Glucose 126 H Calcium 8.1 L Cardiac Enzymes 06/14/16 Range/Units 16:22 Troponin I 0.00 (0-0.03) ng/mL - Impressions Impressions Chest X-Ray 06/14/16 08:45 IMPRESSION: Left basilar atelectasis. D/ / Melani Martinez MD / Melani Martinez MD Interpreting Provider: Melani Martinez MD - VTE Documentation of Mechanical Device: Graduated compression elastic hosiery Consult Discharge Plan - Plan Referrals: Rufus Díaz MD [Partnered Physician] - 07/12/16 10:05 am Lisa Moreno, PAC [Physician Tariff Counsel] - 06/24/16 9:45 am Jon Collier, AUTOMATIC BANDSAW TENDER [Primary Care Provider] - 06/17/16 10:00 am
[2016-06-15] MEDS: 0.9 % Sodium Chloride 1,000 ML IVC SCH (16:02)
[2016-06-15] MEDS ORDERED: Furosemide 40 MG/4 ML VIAL ONE (16:07)
[2016-06-15] MEDS: Loratadine 10 MG TABLET PO SCH (22:43)
[2016-06-16] MEDS: 0.9 % Sodium Chloride 1,000 ML IVC SCH (04:50)
[2016-06-16] MEDS: *HR* OxyCODONE Immed Rel 5 MG TABLET PO PRN ×2 (06:32→11:31)
[2016-06-16] MEDS: *HR* Enoxaparin 30 MG/0.3 ML SYRINGE SQ SCH (06:33)
[2016-06-16 06:40] LABS: Basophils % 0.2 %; Eosinophils # 0.1 K/mcL (0.0-0.6); Eosinophils % 0.9 %; Hematocrit 28.1 % (35.3-44.9); Hemoglobin 9.5 g/dL (11.5-15.4); Immature Granulocytes % 0.6 % (0-4); Lymphocytes # 1.4 K/mcL (0.6-4.6); Lymphocytes % 12.4 %; Mean Corpuscular HGB Conc 33.8 g/dL (31.6-35.5); Mean Corpuscular Hemoglobin 29.7 pg (28.0-33.3); Mean Corpuscular Volume 87.8 fL (83.0-100.0); Mean Platelet Volume 9.5 fL (9.4-12.4); Monocytes # 1.1 K/mcL (0.0-1.3); Monocytes % 9.8 %; Neutrophils # 8.6 K/mcL (1.6-8.9); Platelet Count 166 K/mcL (140-400); Red Cell Distribution Width 14.5 % (11.5-14.5); Segmented Neutrophils % 76.1 %
[2016-06-16 07:00] LABS: BUN/Creatinine Ratio 14 (6-26); Blood Urea Nitrogen 10 mg/dL (7-20); Calcium 8.1 mg/dL (8.6-10.8); Carbon Dioxide 20 mEq/L (19-29); Chloride 99 mEq/L (98-109); Glucose 110 mg/dL (70-99); Osmolality,Calculated 264 (280-300); Potassium 3.8 mEq/L (3.5-4.5); Sodium 127 mEq/L (136-145); eGFR For African Americans > 60 (> 60); eGFR For Non-African Americans > 60 (> 60)
--- NOTE | 2016-06-16 07:34 | ECHO - Doppler Report ---
Echocardiogram Name: Shalini Whitaker Date of Study: 06/15/2016 Date: 1940 Ht: 64.0 in Medical Record#: [id number] Age: 75 Wt: 140.0 lb Gender: Female BSA: 1.68 Order #: [id number] Location: [facility] Room #: [facility] [place] Reading Physician: Barrington Peguero MD, [facility] [employer] Salesperson: Jenifer Fam Ordering Physician: Rosa Maria Braswell MD Primary Physician: Jon Collier CNP Indications: Syncope Impressions: Normal left ventricular size and systolic function, LVEF 55%. Normal right ventricular size and function. Mild-moderate tricuspid regurgitation. Moderate pulmonary hypertension. Estimated RVSP = 50 mmHg. Left Ventricular Wall Motion: Rest Echo Findings All wall segments showed normal motion. Findings: Study Quality * Suboptimal echo windows. ECG Findings * Sinus rhythm with occcasional PVCs. Left Ventricle * Normal left ventricular size and systolic function, LVEF 55%. * Normal LV wall thickness. * Indeterminate diastolic function. Right Ventricle * Normal right ventricular size and function. Left Atrium * Normal left atrial size. Right Atrium * Normal right atrial size. Aorta * Normally sized aortic root. Pericardium * There is no pericardial effusion present. IVC * The IVC is not dilated. Aortic Valve * Trileaflet aortic valve. * Moderately sclerotic aortic valve leaflets. * No aortic stenosis. * Trace aortic regurgitation. Mitral Valve * Normal mitral valve structure. * No mitral stenosis. * Trace mitral regurgitation. Tricuspid Valve * Normal tricuspid valve structure. * No tricuspid stenosis. * Mild-moderate tricuspid regurgitation. * Moderate pulmonary hypertension. Estimated RVSP = 50 mmHg. Pulmonic Valve * Pulmonic valve not well visualized. * No pulmonic stenosis. * Trace pulmonic regurgitation. History Hypercholesteremia Family History of CAD Measurements: BP: 146/ 72 2D Normal Values RVIDd: 3.10 cm IVSd: .70 cm 0.6 - 1.0 cm LVIDd: 5.10 cm 3.7 - 5.6 cm LVPWd: .90 cm 0.6 - 1.1 cm LVIDs: 3.80 cm 1.5 - 3.6 cm AO: 2.50 cm < 4.0 cm %FS: 25.50 cm >25 % LA volume: 42 Mitral Valve Peak E:.73 m/sec Peak A:.76 m/sec E/A Ratio:1 Tricuspid Valve TV Regurg Peak Grad: 45.00mmHg TV Regurg Peak Juan Manuel: 3.34m/sec Updated by Barrington Peguero MD, [facility] on 06/16/2016 7:28:44 AM electronically signed on 06/16/2016 7:29:45 AM with status of Final Wall Motion Smith: 1=Normal, 2=Hypokinesis, 3=Akinesis, 4=Dyskinesis, 5=Aneurysmal, 6=Hyperkinetic, X=Not Visualized (Blank)=Missing
--- NOTE | 2016-06-16 08:14 | Orthopedics Progress Note ---
Date of Encounter: 06/16/16 Time of Encounter: 08:14 - Assessment and Plan (1) Degenerative arthritis of knee, bilateral Current Visit: Yes Status: Acute Qualifiers: Qualified Code(s): M17.0 - Bilateral primary osteoarthritis of knee (2) Thyroid disease Current Visit: Yes Status: Chronic (3) Acute blood loss anemia Current Visit: Yes Status: Acute (4) Hypotension Current Visit: Yes Status: Acute Qualifiers: Qualified Code(s): I95.89 - Other hypotension (5) Hypothyroidism Current Visit: Yes Status: Acute Qualifiers: Qualified Code(s): E03.9 - Hypothyroidism, unspecified Subjective Interval history: Patient was seen this morning doing well without complaints. Afebrile vital signs stable. Operative extremity: Neurovascularly intact Dressing clean dry and intact Calves nontender Assessment and plan: Continue with postoperative care Hemoglobin 9.5 sodium 127 plan for discharge if cleared by hospitalist today. Objective Vital signs: Vital Signs Temp Pulse Resp BP Pulse Ox 06/16/16 06:43 97.4 F L 102 16 151/66 93 L 06/16/16 04:00 98.1 F 69 17 150/56 95 06/16/16 00:00 98.0 F 91 17 129/70 100 06/15/16 20:00 98.5 F 92 17 122/67 96 06/15/16 14:58 98.3 F 95 18 146/72 93 L 06/15/16 14:09 98.6 F 90 15 126/54 98 06/15/16 12:50 97.3 F L 90 16 114/66 94 L 06/15/16 11:50 97.7 F 93 16 117/68 93 L 06/15/16 11:36 97 06/15/16 11:35 97.7 F 93 16 117/68 95 06/15/16 11:34 62 L 06/15/16 11:20 98.5 F 91 16 122/67 94 L Intake and Output 06/15/16 06/16/16 06/16/16 23:59 07:59 15:59 Intake Total 450 / 450 1250 / 1250 Balance 450 / 450 1250 / 1250 Intake: IV Fluids 100 / 100 1000 / 1000 0.9 % Sodium Chloride 1, 100 / 100 1000 / 1000 000 ML @ 75 mls/hr IVC . [id number] [facility] Rx#: [id number] Oral 350 / 350 250 / 250 Other: Meal Dinner Percent of Meal Consumed 25% # Urine Diapers 1 1 - Labs CBC & BMP: 06/16/16 06:16 06/16/16 06:16 Labs: Abnormal lab results WBC 11.2 K/mcL (4.3-11.1) H 06/16/16 06:16 RBC 3.20 M/mcL (3.82-4.97) L 06/16/16 06:16 Hgb 9.5 g/dL (11.5-15.4) L 06/16/16 06:16 Hct 28.1 % (35.3-44.9) L 06/16/16 06:16 Sodium 127 mEq/L (136-145) L 06/16/16 06:16 Glucose 110 mg/dL (70-99) H 06/16/16 06:16 POC Glucose 135 (58-89) H 06/14/16 08:41 Serum Osmolality 266 mOsm/kg (280-300) L 06/14/16 16:22 Calculated Osmolality 264 (280-300) L 06/16/16 06:16 Calcium 8.1 mg/dL (8.6-10.8) L 06/16/16 06:16 Ionized Calcium 1.06 mmol/L (1.15-1.35) L 06/15/16 04:56 Serum Total Protein 5.5 g/dL (6.0-8.3) L 06/14/16 09:50 Albumin 2.7 g/dL (3.5-5.0) L 06/14/16 09:50 Albumin/Globulin Ratio 1.0 (1.1-2.2) L 06/14/16 09:50 Urine Osmolality 268 mOsm/kg (300-1090) L 06/14/16 21:30 - VTE Documentation of Mechanical Device: Venous foot pump, device Consult Discharge Plan - Plan Referrals: Rufus Díaz MD [Partnered Physician] - 07/12/16 10:05 am Lisa Moreno PAC [Physician Graduation Coach] - 06/24/16 9:45 am Jon Collier CNP [Primary Care Provider] - 06/17/16 10:00 am
[2016-06-16] MEDS: Aspirin 81 MG TAB.CHEW PO SCH (08:31)
[2016-06-16] MEDS: Fluticasone Propionate Nasal 50 MCG/SPRAY BOTTLE NS SCH (08:31)
[2016-06-16] MEDS: Multivit/Ca/Min/Fe/FA 1 TAB TABLET PO SCH (08:31)
[2016-06-16 11:34] VITALS: BP 132/65
--- NOTE | 2016-06-16 12:55 | Internal Med Progress Note ---
Date of Encounter: 06/16/16 Time of Encounter: 12:52 - Subjective Interval history: Reports feeling tired and still has a lot of knee pain on moving her knees; no nausea, vomiting, chest pain, dizziness or dyspnea; Assessment and plan entered here due to technical issues- Tricuspid regurgitation and pulmonary HTN- noted on Echocardiogram; recommend outpatient Cardiology f/up forthis; no acute intervention; Bilateral knee osteoarthritis status post total knee replacement POD#3- local wound care and postoperative care per orthopedic surgery. PT/OT evaluation noted, recommend placement in inpatient rehabilitation. DVT prophylaxis with Lovenox. Pain control with when necessary oxycodone. Hypovolemic hyponatremia-STOP IV fluids and salt tablets; Acute blood loss anemia-likely due to orthopedic surgery. Stable Hb; Patient is medically stable; Hospitalist service will sign off at this time; thank you for the Consult. - Constitutional Vitals: Temp Pulse Resp BP Pulse Ox 98.2 F 101 20 132/65 93 L 06/16/16 11:33 06/16/16 11:33 06/16/16 11:33 06/16/16 11:33 06/16/16 06:43 General appearance: Present: cooperative, A&O X 3, answers questions appropriately - Respiratory Respiratory exam: Present: CTAB. Absent: accessory muscle use, rales, rhonchi, wheezes - Cardiovascular Cardiovascular exam: Present: RRR, +S1, +S2, systolic murmur. Absent: diastolic murmur, gallop, rubs Internal Medicine: Result - Labs CBC & Chem 7: 06/16/16 06:16 06/16/16 06:16 Labs: Short CBC 06/16/16 Range/Units 06:16 WBC 11.2 H (4.3-11.1) K/mcL Hgb 9.5 L (11.5-15.4) g/dL Hct 28.1 L (35.3-44.9) % Plt Count 166 (140-400) K/mcL Neutrophils # 8.6 (1.6-8.9) K/mcL BMP 06/15/16 06/16/16 16:26 06:16 Sodium 129 L 127 L Potassium 3.8 Chloride 99 Carbon Dioxide 20 BUN 10 Creatinine 0.70 Glucose 110 H Calcium 8.1 L - Impressions Impressions Knee X-Ray 06/13/16 00:01 IMPRESSION: Postsurgical changes from bilateral total knee arthroplasty. No radiographic evidence of acute complication. D/ / 06/13/2016 10:11:04 Destinee Martinez MD / becca Interpreting Provider: Destinee Martinez MD - VTE Documentation of Mechanical Device: Venous foot pump, device Consult Discharge Plan - Plan Referrals: Rufus Díaz MD [Partnered Physician] - 07/12/16 10:05 am Lisa Moreno PAC [Physician Route Sales Trainee] - 06/24/16 9:45 am Jon Collier PRIMARY CARE NURSE [Primary Care Provider] - 06/17/16 10:00 am
--- NOTE | 2016-06-16 19:58 | Electrocardiograph Report ---
[place] [address] Test Date: 2016-06-15 Pat Name: Shalini Whitaker Department: 114 Room: [facility] Gender: F Hammer Operator: : 1940 Requested By: Don Vera Order Number: [id number] Reading MD: Gerard Mccall Measurements Intervals [place] Rate: 82 P: -33 [place]: 148 QRS: -3 QRSD: 89 T: 12 QT: 382 QTc: 420 Interpretive Statements SINUS RHYTHM MINIMAL VOLTAGE CRITERIA FOR LVH, CONSIDER NORMAL VARIANT Electronically Signed On 06-16-2016 19:56:20 EST by Gerard Mccall
== END 2016-06-16 14:41 | DRG 461 ==
LOC: SAMDAY 05:55 → 3NENU 10:46
PROVIDERS: ADMIT Orthopaedic Surgery; ATTEND Orthopaedic Surgery

== ENCOUNTER 2017-05-05 12:44 | Inpatient (IN) ==
--- NOTE | 2017-05-05 09:26 | Discharge Summary ---
Date of Encounter: 05/08/17 Time of Encounter: 08:07 - Discharge Diagnosis (1) Left rotator cuff tear arthropathy Priority: Primary Status: Chronic (2) Status post reverse total replacement of left shoulder Priority: Primary Status: Acute (3) Hypothyroidism Priority: Primary Status: Chronic Qualifiers: Hypothyroidism type: unspecified Qualified Code(s): E03.9 - Hypothyroidism , unspecified (4) Hyperlipidemia Priority: Secondary Status: Chronic Qualifiers: Hyperlipidemia type: unspecified Qualified Code(s): E78.5 - Hyperlipidemia , unspecified - Discharge Medications Home Medications: Aspirin 81 mg PO DAILY 06/13/16 [History] Citalopram [CeleXA] 20 mg PO DAILY 06/13/16 [History] Levothyroxine [Synthroid] 75 mcg PO 0630 06/13/16 [History] Multivits,Ca,Min/Iron/FA/Lycop [Centrum Men's Tablet] 1 each PO DAILY 06/13/16 [ History] Simvastatin [Zocor] 20 mg PO HS 06/13/16 [History] Budesonide [Rhinocort Allergy] 1 spr NS DAILY 05/05/17 [History] Cetirizine HCl [24Hour Allergy] 10 mg PO DAILY 05/05/17 [History] OxyCODONE Immed Rel [Roxicodone 5 MG] 5 mg PO Q4HR PRN #24 tablet 05/05/17 [Rx] Tafluprost/Pf [Zioptan 0.0015% Eye Drops] 1 drop OP HS 05/05/17 [History] Allergies/Adverse Reactions: 3 Allergy/AdvReac Type Severity Reaction Status Date / Time No Known Allergies Allergy Verified 05/05/17 13:41 Primary care physician: PCP NONE - Patient Status Disposition: Home Health Service Condition: Good Functional capacity at discharge: independent ambulation Overall status at discharge: patient is progressing back to baseline - Discharge Instructions Follow Up With: Michelle Jones PAC [Physician Stitcher Utility] - 05/12/17 9:15 am NONE,PCP [Primary Care Provider] - Additional Instructions: Discharge Instructions: Total Shoulder Please call [facility] ([phone]), your Primary Care Physician, or report to the Emergency Room if you have any of the following symptoms: Nausea, vomiting, fever greater that 101.5, swelling, chest pain, shortness of breath, increased pain/redness/drainage/odor for your incision site, numbness/ tingling, or any other concerning symptoms. ACTIVITY: Always keep your arm in the sling. Do not raise your arm away from your body. Do not use your arm to help with getting in or out of bed. No weight bearing permitted. Only perform those exercises given to you by your therapist. MEDICATIONS: Upon discharge resume your home medications. Take all the medications as prescribed. Take a stool softener if taking narcotic pain medications. Stool softeners are only effective if you drink enough fluids. Drink 6-8 glass of water or fluids a day, unless this is not allowed for another health problem. Despite using stool softeners, if you haven't had a bowel movement in 3 days, please switch to a gentle laxative. Gentle laxatives are sold over the counter. You should have a bowel movement within 24 hours, if not call the office. You will be discharged from the hospital with a prescription for pain medication. You are encouraged to decrease the use of narcotic pain medication as tolerated. Should you require a refill, please call the office. [facility] prescribes narcotic pain medication for only 4-6 weeks after surgery. If you require pain medication beyond this time period, you may be referred to your Primary Care Physician or to the Pain Clinic for further evaluation. Plan ahead for refills on pain medication as many narcotics either need to be picked up at the office or mailed. It is best to call 48-72 hours in advance of needing a prescription refill so you don't run out of medication. To help control the post-operative pain, you may take NSAIDs (Aleve,Advil, Motrin, Ibuprofen, Naprosyn) or Tylenol as prescribed on the bottle in addition to the pain medication. WOUND CARE: Leave the dressing on for 7-10 days. You may change the dressing if it becomes saturated greater than 50%. Do not get the dressing wet at anytime. Wash your hands with antibacterial soap, rinse and dry prior to any wound care. If you have olive the visiting nurse or rehab facility can remove the stapes 10-14 days after surgery and place steri-strips across the wound. Leave the steri-strips in place until they fall off on their own. You may let water from the shower run on top of the steri-strips. If you do not have a visiting nurse or rehab facility, you will need to return to the office at 10-14 days for the olive to be removed. If you have itching or redness around the dressing call the office. FOLLOW-UP: Please follow up with your surgeon in the orthopedic clinic, as scheduled - Hospital Course Hospital course: Ms. Whitaker is a 76 year old female Status post left total shoulder replacement The patient had an uneventful postoperative course. They received antibiotics and physical therapy and were discharged in stable condition. There will follow -up in the office in 2 weeks. - Time Spent with Patient Total time spent providing and/or coordinating discharge services:
[2017-05-05] MEDS ORDERED: CeFAZolin Syr 2,000MG/20 ML 2,000 MG/20 ML SYRINGE IVPB ONE (13:09)
[2017-05-05] MEDS ORDERED: *HR* Promethazine 25 MG/ML VIAL IVP PRN (13:28)
[2017-05-05] MEDS ORDERED: *HR* Labetalol 20 MG/4 ML SYRINGE IVP PRN (13:28)
[2017-05-05] MEDS ORDERED: *HR* HYDROmorphone (PF) 1 MG/ML SYRINGE IVP PRN ×2 (13:28→16:51)
[2017-05-05] MEDS ORDERED: Famotidine 20 MG/2 ML VIAL IVP ONE (13:28)
[2017-05-05] MEDS ORDERED: Acetaminophen IV 1,000 MG/100 ML INFUS..BTL IVPB ONE (13:32)
--- NOTE | 2017-05-05 13:33 | Anesthesia Evaluation PreOp ---
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 History: Denies Any Significant HX, Other (Anxiety/Depression maintained on Citalopram) Other Medical History: Thyroid (Hypothyroidism maintained on Synthroid), Other ( Suspected dx of Glaucoma maintained on Zioprost eye gtt (Rx for 2 months)) Anesthesia History: No Prior Anesthetic Complications, Past Anesthesia (BTL, B- TKR, Colonoscopy) Alcohol Use: occasionally Drug use: none Medications and Allergies Aspirin 81 mg PO DAILY 06/13/16 [History] Citalopram [CeleXA] 20 mg PO DAILY 06/13/16 [History] Levothyroxine [Synthroid] 75 mcg PO 0630 06/13/16 [History] Multivits,Ca,Min/Iron/FA/Lycop [Centrum Men's Tablet] 1 each PO DAILY 06/13/16 [ History] Simvastatin [Zocor] 20 mg PO HS 06/13/16 [History] Budesonide [Rhinocort Allergy] 1 spr NS DAILY 05/05/17 [History] Cetirizine HCl [24Hour Allergy] 10 mg PO DAILY 05/05/17 [History] OxyCODONE Immed Rel [Roxicodone 5 MG] 5 mg PO Q4HR PRN #24 tablet 05/05/17 [Rx] Tafluprost/Pf [Zioptan 0.0015% Eye Drops] 1 drop OP HS 05/05/17 [History] 3 Allergy/AdvReac Type Severity Reaction Status Date / Time No Known Allergies Allergy Verified 05/05/17 13:41 - Meds/Allergy Pre-op Review Medications Reviewed: Yes Allergies Reviewed: Yes Beta Blockers on Current Med List: No Anesthesia Results - Labs Laboratory Tests 05/04/17 05/04/17 05/04/17 09:12 09:12 09:12 WBC 5.5 Hgb 11.7 Hct 34.9 L PT 10.4 INR 1.0 APTT 27.8 Sodium 138 Potassium 4.3 Chloride 106 Carbon Dioxide 26 BUN 20 Creatinine 1.00 Est GFR (Non-Af Amer) 54 L Glucose 82 Anesthesia Exam O2 Sat Height 1.6 m Height 1.6 m Height 1.6 m Weight 65.317 kg Weight 65.317 kg Weight 65.317 kg O2 Sat by Pulse Oximetry 96 Vital Signs Temp Pulse Resp BP Pulse Ox 97.5 F L 54 18 161/71 96 05/05/17 13:32 05/05/17 13:32 05/05/17 13:32 05/05/17 13:32 05/05/17 13:32 Height: 5'3" Weight: 144# BMI = 25.5 NPO (# of Hours): Mnoc - HEENT Pupil (Motor): Pupils equal, EOMI Mallampati: II Teeth: Normal (fair dentition) Oral Opening: Greater than 3 - CHEESE TESTER LOC: Oriented CHEESE TESTER Motor: Normal RUE, Normal LUE, Normal RLE, Normal LLE, Normal Face CHEESE TESTER Sensory: Normal: RUE, LUE, RLE, LLE, Face - Cardiac Rhythm: Regular Murmur: None - Pulmonary Breath Sounds: bilateral Clear Respiratory Effort: Symmetrical Anesthesia Assess/Plan ASA Score: 2 (Anxiety/Depression, Hypothyroidism, Chol) Modified Evans Scale for Level of Consciousness: Cooperative, oriented, and tranquil Anesthetic Plan: General, Regional Monitoring Plan: Standard Monitors Recovery Plan: PACU Anes Supervising Prov Stmt: Pt seen/evaluated, R&B Discussed questions answered and consent obtained. Ramila Chandler MD
--- NOTE | 2017-05-05 13:58 | History & Physical Report ---
Date of Encounter: 05/05/17 Time of Encounter: 13:58 24 Hour HP Update - Instructions Instructions: If the History and Physical is less than 30 days old and was completed prior to A.M. admission and or procedure and has NOT been updated on calendar day of procedure please complete this update prior to performing procedure. - Update Patient reports changes in Medical Condition: No Changes in examination, assessment, or condition: No Changes in Medication: No Preop tests/diagnostics Reviewed: Yes Surgery Remains Indicated: Yes Consent for Planned Operative Procedure(s) Verified: Yes - Pre-Operative Checklist Preoperative Checklist Indicated: No Prophylactic Antibiotic Ordered: Yes Is VTE Prophylaxis Indicated?: Yes
[2017-05-05] MEDS ORDERED: ROPIVACAINE HCL/PF 0.5% 30 ML VIAL ONE (14:11)
[2017-05-05] MEDS ORDERED: *HR* FentaNYL (PF) 100 MCG/2 ML VIAL ONE (14:11)
[2017-05-05] MEDS ORDERED: *HR* Midazolam HCl 2 MG/2 ML VIAL ONE (14:11)
--- NOTE | 2017-05-05 14:26 | Anesthesia Procedures ---
Date of Encounter: 05/05/17 Time of Encounter: 14:25 Procedures: Anesthesia - Nerve Block Procedure Date: 05/05/17 Time: 14:25 Allergies/Adv Reactions: nka Pre-op Diagnosis: Left Shoulder Arthritis Surgical Procedure: Reverse Left Total Shoulder Arthroplasty Checklist: Correct Patient Identifier, Correct procedure, History checked Correct side: Left Blood Thinner: No Monitor Applied: EKG, BP, Pulse Oximetry Supplemental Oxygen via Nasal Cannula (L/min): 2 Sedation: Versed (mg): 1 Sedation: Fentanyl (mcg): 50 Indication: Post Op Analgesia Pre-op Neuro Deficits: No Block Type: Supraclavicular Catheter placed: No Sterile Technique: Yes Ultrasound used: Yes Anatomy identified: Yes Visual spread of Local: Yes Neuro Stimulation: No Blood on Needle Aspiration: Yes Smooth Injection of Local: Yes Pain with Injection of Local: No Prep: Chlorhexadine Needle: 22 x 50 mm Stimuplex (Echogenic) Local: Ropivacaine (0.5%) Volume (cc): 30 Number of Attempts: 1 Complications: None/effective block Vitals: VSS throughout Procedure
[2017-05-05] MEDS ORDERED: *HR* Propofol 200 MG/20 ML VIAL IVP ONE (15:27)
[2017-05-05] MEDS ORDERED: Lidocaine -MPF 2% 2 ML VIAL ONE (15:27)
[2017-05-05] MEDS ORDERED: Dexamethasone 4 MG/ML VIAL ONE (15:37)
[2017-05-05] MEDS ORDERED: Ondansetron 4 MG/2 ML VIAL ONE (15:37)
[2017-05-05] MEDS: Ringers Solution, Lactated 1,000 ML IVC SCH ×2 (15:41→15:42)
[2017-05-05] MEDS ORDERED: Acetaminophen IV 1,000 MG/100 ML INFUS..BTL ONE (15:42)
[2017-05-05] MEDS ORDERED: *HR* Magnesium Sulfate 1 GM/2 ML VIAL ONE (15:44)
--- NOTE | 2017-05-05 16:13 | Orthopedic Operative Note ---
Date of procedure: 05/05/17 Pre-op diagnosis: Left shoulder cuff tear arthropathy Post-op diagnosis: same Procedure: Procedure: Total Shoulder Replacment Reverse, left Estimated blood loss: 100 cc Hardware: Metal and polyethylene replacement: Arthrex medium glenoid baseplate , 2 4.5 screws. 1 6.5 screw, 39 Central glenosphere, 6 humeral stem, poly insert 3 Exam Under anesthesia: Full motion with stability Procedural Notes: Grade 4 arthritic changes humeral head glenoid socket irreparable tear subscap Operative procedure: The patient was brought to the operating room and placed on the operating room table. After general anesthesia was administered the operative shoulder was examined. Findings were noted. The patient was placed in the modified beachchair position. All pressure points were padded appropriately. And the head was stabilized in the neutral position. The operative extremity was prepped and draped in the sterile surgical fashion. The patient received IV antibiotics prior to skin incision. A standard deltopectoral approach was made to the operative shoulder. Incision was made to the skin and subcutaneous tissue,hemo stasis was obtained with Bovie cautery. Using careful blunt dissection the cephalic vein was identified and mobilized medially. The deltopectoral interval was developed and the clavipectoral fascia was incised. The subscap was irreparable. The humerus was dislocated patient noted to have irreparable tear supraspinatus tendon, and the humeral cut was made along the anatomic neck. Patient noted to have grade 4 arthritic changes humeral head. Anterior and posterior Bankart retractors were placed to expose the glenoid. Patient with a grade 4 arthritic changes glenoid socket. The glenoid guide was seated and the centering hole was made. It was reamed with the appropriate reamer. The medium baseplate was seated and secured with (2) 4.5 screws and one 6.5 screw. The baseplate was irrigated and dried and the 39 Central Glenosphere was seated and secured with the Chacko taper. The Chacko taper was tested and found to be secure the humerus was redislocated and prepared with the diaphyseal reamers, followed by a broaching process up to the appropriate size 6 in the patient's anatomic version. The metaphyseal reamer was then utilized. Trial reduction found the shoulder to be relocatable. Trial components were removed and the 6 stem was impacted in place in the patient's anatomic version. Trial reduction found the shoulder to be relocatable and stable with the appropriate 3. Trial component was removed and the real implant was seated and secured the shoulder was reduced. The shoulder had excellent motion and excellent stability and no evidence of dislocation. The deep tissue was irrigated with pulse irrigation. The deltopectoral interval was closed with a running #1 PDS suture, subcutaneous tissue was irrigated and closed with 0 PDS suture, the skin was closed with Dermabond. The patient was placed in a sterile dressing, abduction brace and extubated. The patient was then transferred to the recovery room in stable condition. Anesthesia: GETA Surgeon: Rufus Díaz Was there an clinical assistant present: No Estimated blood loss (cc): 100 Condition: stable Disposition: PACU
--- NOTE | 2017-05-05 16:44 | Anesthesia Evaluation Post Op ---
Date of Encounter: 05/05/17 Time of Encounter: 16:43 - Vital Signs Vital Signs: Vital Signs/O2 Sat, Most Current Temp Pulse Resp BP Pulse Ox 97.1 F L 82 12 149/87 97 05/05/17 16:14 05/05/17 16:34 05/05/17 16:34 05/05/17 16:34 05/05/17 16:34 - Lungs Lungs: Clear Ascult./Percussion - Airway Airway: Non-obstructed - Cardiovascular Regular Rate - Mental Status Mental Status: Alert & Oriented, Answers Appropriately - Pain Pain Scale: 0 - Nausea Vomiting Nausea Vomiting: Not Present - Hydration Hydration: Ice chips, Has not voided - Discharge PostOp Status: Transfer Patient to floor
[2017-05-05 16:50] LABS: Hematocrit 32.4 % (35.3-44.9); Hemoglobin 10.8 g/dL (11.5-15.4)
[2017-05-05] MEDS ORDERED: Ondansetron 4 MG/2 ML VIAL IVP PRN (16:51)
[2017-05-05] MEDS ORDERED: *HR* OxyCODONE Immed Rel 5 MG TABLET PO PRN (16:51)
[2017-05-05] MEDS ORDERED: CeFAZolin Premix DUPLEX 2,000 MG/50 ML BAG IVPB SCH (16:51)
[2017-05-05] MEDS ORDERED: Naloxone 0.4 MG/ML INJ IVP PRN (16:51)
[2017-05-05] MEDS ORDERED: Ringers Solution, Lactated 1,000 ML IVC SCH (16:51)
[2017-05-05] MEDS ORDERED: *HR* Enoxaparin 30 MG/0.3 ML SYRINGE SQ SCH (18:00)
[2017-05-05] MEDS: *HR* Enoxaparin 30 MG/0.3 ML SYRINGE SQ SCH (18:46)
[2017-05-05] MEDS ORDERED: Latanoprost 2.5 ML BOTTLE BOTH EYES SCH (21:00)
[2017-05-05] MEDS ORDERED: MOM Conc 10 ML UD.LIQ PO PRN (21:00)
[2017-05-05] MEDS ORDERED: Temazepam 15 MG CAPSULE PO PRN (21:00)
[2017-05-05] MEDS ORDERED: Sennosides 8.6 MG TABLET PO PRN (21:00)
[2017-05-05] MEDS: CeFAZolin Premix DUPLEX 2,000 MG/50 ML BAG IVPB SCH (23:38)
[2017-05-06 04:49] LABS: Hematocrit 30.7 % (35.3-44.9); Hemoglobin 10.4 g/dL (11.5-15.4)
[2017-05-06] MEDS: *HR* Enoxaparin 30 MG/0.3 ML SYRINGE SQ SCH (05:25)
[2017-05-06] MEDS ORDERED: Aspirin 81 MG TAB.CHEW PO SCH (09:00)
[2017-05-06] MEDS ORDERED: Fluticasone Propionate Nasal 50 MCG/SPRAY BOTTLE NS SCH (09:00)
[2017-05-06] MEDS ORDERED: Loratadine 10 MG TABLET PO SCH (09:00)
[2017-05-06] MEDS ORDERED: Multivit/Ca/Min/Fe/FA 1 TAB TABLET PO SCH (09:00)
[2017-05-06] MEDS: CeFAZolin Premix DUPLEX 2,000 MG/50 ML BAG IVPB SCH (09:22)
[2017-05-06] MEDS: *HR* OxyCODONE Immed Rel 5 MG TABLET PO PRN ×2 (11:08→14:04)
[2017-05-06 12:11] VITALS: BP 145/76
--- NOTE | 2017-05-09 09:11 | Physician Discharge Referral ---
Home Health/Hosp Referral Info Transfer to: Home Health Attending Provider: Dr Rufus Díaz - Diagnosis (1) Hypothyroidism Priority: Secondary Status: Chronic (2) Left rotator cuff tear arthropathy Priority: Primary Status: Chronic (3) Status post reverse total replacement of left shoulder Priority: Primary Status: Acute (4) Hyperlipidemia Priority: Secondary Status: Chronic - Respiratory Orders Smoking Cessation: Smoking cessation has been advised. For more information, call the [employer] Tobacco Quit Line at 1-105-LBZA-NOW. - Dressing/Wound Care Site: left shoulder Type of Dressing/Treatments w/Frequency: Opsite placed. Keep dressing intact until first follow up appointment. If > 50% saturated, notify office, remove dressing and place appropriate dressing back in place. Leave Zipline intact. Opsite dressing is water resistant, not water- proof. OK to shower, but do not get dressing wet. - Diet/Nutrition Diet/Nutrition Orders: Regular - Activity Activity Orders: Up ad regina, Ambulate, Chair Activity: List: PT/OT. NWB to affected upper extremity. Follow Shoulder Precautions x 6 weeks. Stay in brace during activity and at night. Remove brace during exercises. ICE and elevate extremity frequently throughout the day. - Services Needed Following services are medically necessary services: Nursing, Home Health Aide, Physical Therapy, Occupational Therapy - Transfer Medications Home Medications: Aspirin 81 mg PO DAILY 06/13/16 [History] Citalopram [CeleXA] 20 mg PO DAILY 06/13/16 [History] Levothyroxine [Synthroid] 75 mcg PO 0630 06/13/16 [History] Multivits,Ca,Min/Iron/FA/Lycop [Centrum Men's Tablet] 1 each PO DAILY 06/13/16 [ History] Simvastatin [Zocor] 20 mg PO HS 06/13/16 [History] Budesonide [Rhinocort Allergy] 1 spr NS DAILY 05/05/17 [History] Cetirizine HCl [24Hour Allergy] 10 mg PO DAILY 05/05/17 [History] OxyCODONE Immed Rel [Roxicodone 5 MG] 5 mg PO Q4HR PRN #24 tablet 05/05/17 [Rx] Tafluprost/Pf [Zioptan 0.0015% Eye Drops] 1 drop OP HS 05/05/17 [History] Allergies/Adverse Reactions: 3 Allergy/AdvReac Type Severity Reaction Status Date / Time No Known Allergies Allergy Verified 05/05/17 13:41 Certification: Further, I certify that my clinical findings support that this patient is homebound (i.e. absences from home require considerable and taxing effort and are for medical reasons or restorationist services or infrequently or short duration when for other reasons) because: Homebound Reason: Post-surgery restriction and or conditions limit ability to leave home Attestation: My signature below is to certify that this patient is under my care and that I, or nurse practitioner, or a physician neurology physician assistant working with me, has a face-to- face encounter with this patient.
== END 2017-05-06 14:14 | disposition home health service (06) | DRG 483 ==
LOC: SAMDAY 12:44 → 3NENU 16:52
PROVIDERS: ADMIT Orthopaedic Surgery; ATTEND Orthopaedic Surgery

== ENCOUNTER 2017-09-07 12:20 | Inpatient (IN) ==
--- NOTE | 2017-09-07 10:46 | Discharge Summary ---
Orders not resulted at time of discharge: Pending orders 09/07/17 09:08 Left Shoulder Complete [XR shoulder complete LT] [XR] Routine Hemoglobin and Hematocrit [HEME] Routine Date of Encounter: 09/08/17 Time of Encounter: 06:26 - Discharge Diagnosis (1) Loosening of total shoulder replacement Priority: Primary Status: Acute Qualifiers: Encounter type: subsequent encounter Qualified Code(s): T84.038D - Mechanical loosening of other internal prosthetic joint, subsequent encounter; Z96.619 - Presence of unspecified artificial shoulder joint (2) Status post bilateral knee replacements Priority: Secondary Status: Chronic (3) Hypothyroidism Priority: Secondary Status: Chronic Qualifiers: Hypothyroidism type: unspecified Qualified Code(s): E03.9 - Hypothyroidism , unspecified (4) Status post reverse total replacement of left shoulder Priority: Primary Status: Chronic (5) Hyperlipidemia Priority: Secondary Status: Chronic Qualifiers: Hyperlipidemia type: unspecified Qualified Code(s): E78.5 - Hyperlipidemia , unspecified - Hospital Course Hospital course: Ms. Whitaker is a 76 year old female Status post revision left total shoulder The patient had an uneventful postoperative course. They received antibiotics and physical therapy and were discharged in stable condition. There will follow -up in the office in 2 weeks. - Time Spent with Patient Total time spent providing and/or coordinating discharge services: - Discharge Medications Home Medications: Aspirin 81 mg PO DAILY 06/13/16 [History] Citalopram [CeleXA] 20 mg PO DAILY 06/13/16 [History] Levothyroxine [Synthroid] 75 mcg PO 0630 06/13/16 [History] Multivits,Ca,Min/Iron/FA/Lycop [Centrum Men's Tablet] 1 tab PO DAILY 06/13/16 [ History] Simvastatin [Zocor] 20 mg PO HS 06/13/16 [History] Budesonide [Rhinocort Allergy] 1 spr NS DAILY 05/05/17 [History] Cetirizine HCl [24Hour Allergy] 10 mg PO DAILY 05/05/17 [History] OxyCODONE Immed Rel [Roxicodone 5 MG] 5 mg PO Q4HR PRN 5 Days #20 tablet [Rx] Allergies/Adverse Reactions: 3 Allergy/AdvReac Type Severity Reaction Status Date / Time No Known Allergies Allergy Verified 05/10/18 13:09 Primary care physician: Leona Avery CNP - Patient Status Disposition: Home, Self-Care Condition: Good Functional capacity at discharge: independent ambulation Overall status at discharge: patient is progressing back to baseline - Discharge Instructions Follow Up With: Leona Avery CNP [Primary Care Provider] -
--- NOTE | 2017-09-07 13:19 | Anesthesia Evaluation PreOp ---
Date of Encounter: 09/07/17 Time of Encounter: 13:16 - Past History Planned Operation: Left total shoulder revision, reverse ball and socket Cardiac History: Hyperlipidemia Pulmonary History: Denies Any Significant HX COSTUME TECHNICIAN History: Other (residual numbness in second and middle digits of left arm since last surgery (no motor deficits)) Other Medical History: Thyroid Anesthesia History: No Prior Anesthetic Complications Alcohol Use: occasionally Drug use: none Medications and Allergies Aspirin 81 mg PO DAILY 06/13/16 [History] Citalopram [CeleXA] 20 mg PO DAILY 06/13/16 [History] Levothyroxine [Synthroid] 75 mcg PO 0630 06/13/16 [History] Multivits,Ca,Min/Iron/FA/Lycop [Centrum Men's Tablet] 1 tab PO DAILY 06/13/16 [ History] Simvastatin [Zocor] 20 mg PO HS 06/13/16 [History] Budesonide [Rhinocort Allergy] 1 spr NS DAILY 05/05/17 [History] Cetirizine HCl [24Hour Allergy] 10 mg PO DAILY 05/05/17 [History] OxyCODONE Immed Rel [Roxicodone 5 MG] 5 mg PO Q4HR PRN 5 Days #20 tablet [Rx] 3 Allergy/AdvReac Type Severity Reaction Status Date / Time No Known Allergies Allergy Verified 09/07/17 13:09 - Meds/Allergy Pre-op Review Medications Reviewed: Yes Allergies Reviewed: Yes Beta Blockers on Current Med List: No Anesthesia Results - Labs Laboratory Tests 07/24/17 07/24/17 08:09 08:09 WBC 8.9 Hgb 11.7 Hct 37.4 Plt Count 372 Sodium 137 Potassium 4.0 Chloride 104 Carbon Dioxide 23 BUN 18 Creatinine 0.81 Est GFR ( Amer) > 60 Est GFR (Non-Af Amer) > 60 BUN/Creatinine Ratio 22 Glucose 81 Calculated Osmolality 285 Calcium 9.7 - Imaging EKG: report reviewed, image reviewed (SINUS BRADYCARDIA LEFT VENTRICULAR HYPERTROPHY POSSIBLE ANTERIOR MYOCARDIAL INFARCTION, OF INDETERMINATE AGE) Additional studies: 2-2016 TTE: Indications: Syncope Impressions: Normal left ventricular size and systolic function, LVEF 55%. Normal right ventricular size and function. Mild-moderate tricuspid regurgitation. Moderate pulmonary hypertension. Estimated RVSP = 50 mmHg. Anesthesia Exam Last Vital Signs Temp 97.7 F 09/07/17 12:44 Pulse 60 09/07/17 12:44 Resp 18 09/07/17 12:44 BP 147/67 09/07/17 12:44 Pulse Ox 98 09/07/17 12:44 Weight: 65 kg NPO (# of Hours): > 8 hrs - HEENT Pupil (Motor): Pupils equal, EOMI Mallampati: II Teeth: Normal Oral Opening: Greater than 3 - COSTUME TECHNICIAN LOC: Oriented - Cardiac Rhythm: Regular Murmur: None - Pulmonary Breath Sounds: bilateral Clear Respiratory Effort: Symmetrical Anesthesia Assess/Plan ASA Score: 2 Modified [place] Scale for Level of Consciousness: Cooperative, oriented, and tranquil Anesthetic Plan: General, Regional (will still offer brachial plexus block in spite of mild sensory deficits involving left second and middle digits; no motor weakness; risks discussed with patient and she is agreeable) Monitoring Plan: Standard Monitors Recovery Plan: PACU
--- NOTE | 2017-09-07 13:20 | History & Physical Report ---
Date of Encounter: 09/07/17 Time of Encounter: 13:19 24 Hour HP Update - Instructions Instructions: If the History and Physical is less than 30 days old and was completed prior to A.M. admission and or procedure and has NOT been updated on calendar day of procedure please complete this update prior to performing procedure. - Update Patient reports changes in Medical Condition: No Changes in examination, assessment, or condition: No Changes in Medication: No Preop tests/diagnostics Reviewed: Yes Surgery Remains Indicated: Yes Consent for Planned Operative Procedure(s) Verified: Yes - Pre-Operative Checklist Preoperative Checklist Indicated: No Prophylactic Antibiotic Ordered: Yes Is VTE Prophylaxis Indicated?: NO
[2017-09-07] MEDS ORDERED: CeFAZolin Syr 2,000MG/20 ML 2,000 MG/20 ML SYRINGE IVPB ONE (13:41)
[2017-09-07] MEDS ORDERED: Ringers Solution, Lactated 1,000 ML IVC SCH ×2 (13:45→17:25)
[2017-09-07] MEDS ORDERED: MORPHINE SUL Oral CONC 10 MG/0.5 ML ORAL.SYG SL PRN (13:49)
[2017-09-07] MEDS ORDERED: *HR* OxyCODONE Immed Rel 5 MG TABLET PO PRN ×2 (13:49→17:25)
[2017-09-07] MEDS ORDERED: *HR* Labetalol 20 MG/4 ML SYRINGE IVP PRN (13:49)
[2017-09-07] MEDS ORDERED: *HR* FentaNYL (PF) 100 MCG/2 ML VIAL ONE (14:14)
[2017-09-07] MEDS ORDERED: *HR* Midazolam HCl 2 MG/2 ML VIAL ONE (14:15)
[2017-09-07] MEDS ORDERED: Ondansetron 4 MG/2 ML VIAL ONE (14:24)
[2017-09-07] MEDS ORDERED: ROPIVACAINE HCL/PF 0.5% 30 ML VIAL ONE (14:24)
[2017-09-07] MEDS ORDERED: Dexamethasone 4 MG/ML VIAL ONE (14:24)
[2017-09-07] MEDS ORDERED: Bupivacaine/Clonidine Syringe 1 EACH SYRINGE ONE (14:42)
[2017-09-07] MEDS ORDERED: Ethanol\\Acetic Acid\\Na Ace\\Ben 1,000 ML IRRIG.SOLN IR ONE (15:01)
--- NOTE | 2017-09-07 15:01 | Anesthesia Procedures ---
Date of Encounter: 09/07/17 Time of Encounter: 14:59 Procedures: Anesthesia - Nerve Block Procedure Date: 09/07/17 Time: 14:59 Surgical Procedure: total shoulder revision Checklist: Correct Patient Identifier, Correct procedure, History checked Correct side: Left Blood Thinner: No Monitor Applied: EKG, BP, Pulse Oximetry Supplemental Oxygen via Nasal Cannula (L/min): 2 Sedation: Versed (mg): 2 Sedation: Fentanyl (mcg): 50 Indication: Post Op Analgesia Pre-op Neuro Deficits: No Block Type: Supraclavicular, Other (superficial cervical plexus (SCP)) Sterile Technique: Yes Ultrasound used: Yes Anatomy identified: Yes Visual spread of Local: Yes Blood on Needle Aspiration: No Smooth Injection of Local: Yes Pain with Injection of Local: No Prep: Chlorhexadine Needle: 22 x 50 mm Stimuplex Local: 0.25% Bupivicaine w/Clonidine 20 mcg/cc (10 cc for SCP), Ropivacaine (0.5 % for supraclavicular) Volume (cc): 30cc Number of Attempts: 1 Complications: None/effective block Vitals: Vital Signs/O2 Sat, Most Current Temp Pulse Resp BP Pulse Ox 97.7 F 68 16 149/74 96 09/07/17 12:44 09/07/17 14:53 09/07/17 14:53 09/07/17 14:53 09/07/17 14:53
[2017-09-07] MEDS ORDERED: Lidocaine -MPF 2% 2 ML VIAL ONE (15:32)
[2017-09-07] MEDS ORDERED: *HR* Succinylcholine 200 MG/10 ML VIAL IVP ONE (15:32)
--- NOTE | 2017-09-07 16:32 | Orthopedic Operative Note ---
Date of procedure: 09/07/17 Pre-op diagnosis: Aseptic loosening left glenoid component Post-op diagnosis: same Procedure: Procedure: Revision left reverse total shoulder replacement Estimated blood loss: 100 cc Hardware: Metal and polyethylene: Arthrex: Small glenoid baseplate, 36+4 sphere , 6 stem, 6 Odalis, one 6.5 screw 2 4.5 screws Procedural Notes: Aseptic loosening of glenoid component secondary to trauma Operative procedure: The patient was brought to the operating room and placed on the operating room table. The patient was placed in the modified beachchair position. All pressure points were padded appropriately. And the head was stabilized in the neutral position. The operative extremity was prepped and draped in the sterile surgical fashion. The patient received IV antibiotics prior to skin incision. A standard deltopectoral approach was made to the operative shoulder. Incision was made through the old incision, through the skin and subcutaneous tissue, hemo stasis was obtained with Bovie cautery. Using careful blunt dissection the cephalic vein was identified and mobilized medially. The deltopectoral interval was developed and the clavipectoral fascia was incised. Fluid was consistent with normal fluid and cultures were obtained. An extensive debridement was performed, and the shoulder was dislocated. The humeral component was disassembled and the humeral stem was removed without incident. Attention was then turned towards the glenoid, the glenoid component was loose it was removed with the baseplate, the 3 screws were removed as well fully intact. There was definite concern with the quality of the overall glenoid and the plate was positioned slightly anterior and inferior in good glenoid bone. The glenoid component was fixed without incident with the defect within the glenoid filled with DBX bone stimulating protein with one 6.5 screw and 2 4.5 locking screws this gave good fixation. The 36+4 Glenosphere was seated and secured. The humerus broached up to its appropriate size 6 in previous version. Trial reduction found the shoulder to be relocatable. Trial components were removed, real implants were seated. Trial reduction found the shoulder to be stable with the 6 Odalis implant. The trial implants were removed the real implants were seated and secured in the shoulder was reduced. The patient had excellent motion and excellent stability no shuck. The deep tissue was irrigated with pulse irrigation the PA close shoulder. deltopectoral interval was closed with #2 PDS suture. Superficially the subcutaneous tissue was closed with 0 PDS suture, the skin was closed with Dermabond. The patient placed sterile dressing, postoperative brace extubated and transferred to the recovery room in stable condition. Anesthesia: GETA Surgeon: Rufus Díaz Was there an architectural administrative assistant present: No Estimated blood loss (cc): 100 Condition: stable Disposition: PACU
[2017-09-07] MEDS ORDERED: *HR* PHENYLEPHRINE 1,000 MCG/10 ML SYRINGE IVP ONE (16:40)
--- NOTE | 2017-09-07 17:15 | Anesthesia Evaluation Post Op ---
Date of Encounter: 09/07/17 Time of Encounter: 17:14 - Vital Signs Vital Signs: Vital Signs/O2 Sat, Most Current Temp Pulse Resp BP Pulse Ox 97.2 F L 66 16 165/87 99 09/07/17 17:03 09/07/17 17:03 09/07/17 17:03 09/07/17 17:03 09/07/17 17:03 - Lungs Lungs: Clear Ascult./Percussion - Airway Airway: Non-obstructed - Cardiovascular Regular Rate - Mental Status Mental Status: Alert & Oriented, Answers Appropriately - Pain Pain Scale: 0 Pain Scale used: Numeric (1 - 10) - Nausea Vomiting Nausea Vomiting: Not Present - Hydration Hydration: Tolerates oral liquids - Discharge PostOp Status: Transfer Patient to floor Attestation: I have assessed this patient and find they meet discharge criteria.
[2017-09-07] MEDS ORDERED: traMADol 50 MG TABLET PO PRN (17:25)
[2017-09-07] MEDS ORDERED: Ondansetron 4 MG/2 ML VIAL IVP PRN (17:25)
[2017-09-07] MEDS ORDERED: CeFAZolin Pre 2,000 MG/100 ML 2,000 MG/100 ML BAG IVPB SCH (17:25)
[2017-09-07] MEDS ORDERED: Sennosides 8.6 MG TABLET PO PRN (17:25)
[2017-09-07] MEDS ORDERED: MOM Conc 10 ML UD.LIQ PO PRN (17:25)
[2017-09-07] MEDS ORDERED: Naloxone 0.4 MG/ML INJ IVP PRN (17:25)
[2017-09-07] MEDS ORDERED: Temazepam 15 MG CAPSULE PO PRN (17:25)
[2017-09-07 17:27] LABS: Hematocrit 32.2 % (35.3-44.9)
[2017-09-07] MEDS ORDERED: *HR* Enoxaparin 30 MG/0.3 ML SYRINGE SQ SCH (18:00)
[2017-09-07] MEDS: *HR* Enoxaparin 30 MG/0.3 ML SYRINGE SQ SCH (19:03)
[2017-09-07] MEDS: CeFAZolin Pre 2,000 MG/100 ML 2,000 MG/100 ML BAG IVPB SCH (23:53)
[2017-09-08 02:00] LABS: Hemoglobin 11.6 g/dL (11.5-15.4)
--- NOTE | 2017-09-08 06:27 | Orthopedics Progress Note ---
Date of Encounter: 09/08/17 Time of Encounter: 06:27 - Assessment and Plan (1) Loosening of total shoulder replacement Current Visit: No Status: Acute Qualifiers: Encounter type: subsequent encounter Qualified Code(s): T84.038D - Mechanical loosening of other internal prosthetic joint, subsequent encounter; Z96.619 - Presence of unspecified artificial shoulder joint (2) Status post bilateral knee replacements Current Visit: No Status: Chronic (3) Hypothyroidism Current Visit: No Status: Chronic Qualifiers: Hypothyroidism type: unspecified Qualified Code(s): E03.9 - Hypothyroidism , unspecified (4) Status post reverse total replacement of left shoulder Current Visit: No Status: Chronic (5) Hyperlipidemia Current Visit: No Status: Chronic Qualifiers: Hyperlipidemia type: unspecified Qualified Code(s): E78.5 - Hyperlipidemia , unspecified Subjective Interval history: Patient was seen this morning doing well without complaints. Afebrile vital signs stable. Operative extremity: Neurovascularly intact Dressing clean dry and intact olive added physical bleeding overnight no active bleeding this morning Calves nontender Assessment and plan: Continue with postoperative care discharge today Objective Vital signs: Vital Signs Temp Pulse Resp BP Pulse Ox 09/08/17 05:36 97.5 F L 60 16 119/71 96 09/07/17 23:51 97.5 F L 65 16 170/73 94 09/07/17 19:40 97.8 F 81 16 170/78 96 09/07/17 18:46 77 16 150/85 97 09/07/17 18:05 98.1 F 66 16 194/72 94 09/07/17 17:36 97.7 F 68 14 186/91 97 09/07/17 17:23 97.2 F L 66 16 164/80 99 09/07/17 17:13 68 16 165/88 98 09/07/17 17:03 97.2 F L 66 16 165/87 99 09/07/17 16:53 70 16 178/87 98 09/07/17 16:43 74 16 184/109 100 09/07/17 16:33 97.4 F L 78 10 184/98 99 09/07/17 14:53 68 16 149/74 96 09/07/17 14:43 65 16 152/72 94 09/07/17 14:25 58 16 116/83 98 09/07/17 12:44 97.7 F 60 18 147/67 98 Intake and Output 09/07/17 09/07/17 09/08/17 15:59 23:59 07:59 Output Total 100 / 100 Balance -100 / -100 Output: Estimated Blood Loss 100 / 100 Other: # Voids 1 1 Weight 65.317 kg - Labs CBC & BMP: 09/08/17 01:01 Labs: Abnormal lab results Hct 34.0 % (35.3-44.9) L 09/08/17 01:01 - VTE Documentation of Mechanical Device: Venous foot pump, device Consult Discharge Plan - Plan Referrals: Leona Avery, BENDING PRESS OPERATOR [Primary Care Provider] -
[2017-09-08] MEDS: *HR* Enoxaparin 30 MG/0.3 ML SYRINGE SQ SCH (06:39)
[2017-09-08] MEDS: CeFAZolin Pre 2,000 MG/100 ML 2,000 MG/100 ML BAG IVPB SCH (06:39)
[2017-09-08] MEDS ORDERED: Loratadine 10 MG TABLET PO SCH (09:00)
[2017-09-08] MEDS ORDERED: Aspirin 81 MG TAB.CHEW PO SCH (09:00)
[2017-09-08] MEDS ORDERED: Fluticasone Propionate Nasal 50 MCG/SPRAY BOTTLE NS SCH ×2 (09:00→21:00)
[2017-09-08] MEDS ORDERED: Multivit/Ca/Min/Fe/FA 1 TAB TABLET PO SCH (09:00)
--- NOTE | 2017-09-08 09:15 | Physician Discharge Referral ---
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 For more information, call the [place] Tobacco Quit Line at 2-455-XAKU-NOW. - Diet/Nutrition Diet/Nutrition Orders: Regular - Activity Activity Orders: Up ad regina, Ambulate - Services Needed Following services are medically necessary services: Nursing, Home Health Aide, Physical Therapy, Occupational Therapy Home Care Orders: No Shoulder ROM, Hold Shoulder PT - Stay in sling x 4-6 weeks. [place] placed SHOULDER continuity: Opsite dressing, leave intact until first post-operative visit. Zipline/Christal in place, plan to remove at post-operative day #14-16. If dressing becomes >50% saturated, contact office, remove dressing and place appropriate dressing in its place. Do not allow for dressing to get wet. Shoulder Precautions x 6 weeks. Apply cold therapy wrap 3-6x/day for 20 minutes at a time. Encourage ambulation throughout the day. Use Incentive spirometer 10x/hour. Elevate affected extremity above heart as tolerated. NWB to affected upper extremity x 6 weeks. Elbow ROM and well shooter strengthening only. - Transfer Medications Home Medications: Aspirin 81 mg PO DAILY 06/13/16 [History] Citalopram [CeleXA] 20 mg PO DAILY 06/13/16 [History] Levothyroxine [Synthroid] 75 mcg PO 0630 06/13/16 [History] Multivits,Ca,Min/Iron/FA/Lycop [Centrum Men's Tablet] 1 tab PO DAILY 06/13/16 [ History] Simvastatin [Zocor] 20 mg PO HS 06/13/16 [History] Budesonide [Rhinocort Allergy] 1 spr NS DAILY 05/05/17 [History] Cetirizine HCl [24Hour Allergy] 10 mg PO DAILY 05/05/17 [History] OxyCODONE Immed Rel [Roxicodone 5 MG] 5 mg PO Q4HR PRN 5 Days #20 tablet [Rx] Allergies/Adverse Reactions: 3 Allergy/AdvReac Type Severity Reaction Status Date / Time No Known Allergies Allergy Verified 09/07/17 13:09 Certification: Further, I certify that my clinical findings support that this patient is homebound (i.e. absences from home require considerable and taxing effort and are for medical reasons or shinto services or infrequently or short duration when for other reasons) because: Homebound Reason: Post-surgery restriction and or conditions limit ability to leave home Attestation: My signature below is to certify that this patient is under my care and that I, or nurse practitioner, or a physician's physician assistant primary care working with me, has a face-to -face encounter with this patient.
[2017-09-08] MEDS: *HR* OxyCODONE/APAP 5/325 TABLET PO PRN ×2 (10:45→15:34)
[2017-09-08 11:50] VITALS: BP 128/76
--- NOTE | 2017-09-08 12:51 | Event Note ---
Date of Encounter: 09/08/17 Time of Encounter: 12:50 PCR - POD#1 - Revision TSR Patient seen at bedside. Labs reviewed. Pain control: adequate Participating in PT. NO SHOULDER PT, STAY IN SLING. ELBOW ROM AND FUEL TECHNICIAN STRENGTHENING ONLY All questions and concerns addressed. Educated on use of incentive spirometer. Encouraged ambulation and proper hydration. Patient educated on post-operative restrictions and post-operative care. Addressed: D/C when comfortable today/tomorrow Discharge plan: Home
== END 2017-09-08 17:23 | disposition home or self-care (01) | DRG 483 ==
LOC: SAMDAY 12:20 → 3NENU 17:26
PROVIDERS: ADMIT Orthopaedic Surgery; ATTEND Orthopaedic Surgery